=== PATIENT | female | born 1990 | race Caucasian/White ===

== ENCOUNTER 2024-06-28 17:30 | Inpatient (IN) | payer OTHER, SELFPAY ==
[2024-06-28] VITALS (8 sets, daily range): BP systolic 97–121; BP diastolic 59–92; BMI 20.4
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
--- NOTE | 2024-06-28 14:55 | EDRN ---
1 cup of OJ administered at this time for BS ashleyucheck 54.
[2024-06-28] MEDS: KEPPRA 1000 MG IV (15:02)
[2024-06-28] MEDS: NSS 1000 IV (15:02)
[2024-06-28 15:22] LABS: % Basophils 0.6 % (0-2); % Eosinophils 0.6 % (0-6); % Immature Granulocytes 0.5 % (0-0.5); % Lymphocytes 12.5 % (20.5-51.1); % Monocytes 3.1 % (1.7-9.3); % Neutrophils 82.7 % (42.2-75.2); Absolute Lymphocytes 0.8 10^3/uL (1.2-3.4); Absolute Monocytes 0.2 10^3/uL (0.1-0.6); Absolute Neutrophils 5.4 10^3/uL (1.4-6.5); Hemoglobin 9.5 g/dL (12.0-16.0); Mean Corp Hgb Conc. 35.2 g/dL (33.0-37.0); Mean Corpuscular Hgb 36.8 pg (27.0-31.0); Mean Corpuscular Volume 104.7 fL (81.0-99.0); Nucleated Red Blood Cells % 0 %; Red Blood Cell Count 2.58 10^6/uL (4.20-5.40); Red Cell Dist. Width 13.8 % (11.5-14.5); White Blood Cell Count 6.5 10^3/uL (4.8-10.8)
[2024-06-28 15:22] LABS: Glucose - Point of Care 76 mg/dl (70-99)
[2024-06-28 15:30] LABS: INR 1.88; PT 21.8 Sec (11.4-14.6)
[2024-06-28 15:31] LABS: APTT 44.5 Sec (23.4-35.0)
[2024-06-28 15:53] LABS: ALT (SGPT) 30 U/L (0-35); AST (SGOT) 89 U/L (14-36); Albumin 2.5 g/dl (3.5-5.0); Alcohol 146 mg/dl; Alkaline Phosphatase 64 U/L (38-126); Blood Urea Nitrogen 9 mg/dl (7-17); Calcium 5.1 mg/dl (8.4-10.2); Carbon Dioxide 16 mmol/L (22-30); Chloride 122 mmol/L (98-107); Creatine Phosphokinase 59 U/L (30-135); Estimated Creatinine Clearance 98 ml/min; Glucose 42 mg/dl (70-99); Magnesium 1.1 mg/dl (1.6-2.3); Potassium 2.3 mmol/L (3.5-5.1); Sodium 146 mmol/L (135-145); Total Bilirubin 0.9 mg/dl (0.2-1.3); Total Protein 4.8 g/dl (6.3-8.2); eGFR > 60.00
[2024-06-28 15:56] LABS: Mean Platelet Volume 8.8 fL (7.4-10.4); Platelet Count 80 10^3/uL (130-400)
[2024-06-28] MEDS: DEXTROSE 50% SYRINGE 25 GRAMS IV (16:06)
[2024-06-28] MEDS: KCL 40 MEQ PO (16:07)
[2024-06-28] MEDS: MAGNESIUM SULFATE 50 IV ×2 (16:07→20:15)
[2024-06-28] MEDS: KCL 270 MEQ IV (16:45)
[2024-06-28 16:47] LABS: Glucose - Point of Care 204 mg/dl (70-99)
--- NOTE | 2024-06-28 17:00 | HPS.HSE ---
Family Physician
-
Family Physician: INTER[facility]IEWE UNKNOWN - PT NOT
Chief Complaint
-
Seizure
History of Present Illness
Patient is a 34 y/o female past medical history of hypothyroidism, GERD/gastritis, and questionable seizure disorder who presents following a seizure. Patient reports she was very tired today and not feeling like herself. She got up to use the
bathroom, but instead walked into her daughter's room where she had an apparent seizure. Family described her as having rigid upper and lower extremities, and was unresponsive for a long period of time. EMS was called who noted patient to be
post-ictal. Patient reports a prior seizure when she was about 16 years old and still in high school, and a second seizure about 15 years ago (several years after the of her oldest child). Patient denies taking any seizure medications in the
past. She admits to daily alcohol consumption of 3 shots of vodka with soda nightly with last drink about 10PM yesterday. She denies prior episodes of alcohol withdrawal.
Medical History
Past Medical History
Past Medical History: Reports Other
Additional Past Medical History:
Hypothyroidism
GERD / Gastritis
?? Seizure Disorder
Alcohol Use Disorder
Past Surgical History: Reports Other
Additional Past Surgical History:
Thyroid Ablation
Endoscopy
Social History
Tobacco: Vaping
Alcohol: Daily (3 shots of vodka nightly)
Drug: None
Family History
Family History: Not pertinent
Allergies / Home Medications
Allergies reflects when Allergies were last updated in [facility].
Home Medications with original date entered in [facility]
Allergy/Medication List:
Allergies
Allergy/AdvReac Type Severity Reaction Status Date / Time
cefaclor [From Ceclor] Allergy Unknown Verified 06/28/24 14:23
ketamine Allergy Unknown Verified 06/28/24 14:23
Penicillins Allergy Unknown Verified 06/28/24 14:23
sulfamethoxazole Allergy Unknown Verified 06/28/24 14:23
[From Bactrim]
trimethoprim [From Bactrim] Allergy Unknown Verified 06/28/24 14:23
Home Medications
calcium carbonate (Tums Extra Strength Smoothies) 300 mg PO DAILYPRN PRN upset stomach 06/28/24
ibuprofen 200 mg tablet 600 mg PO Q6HPRN PRN mild pain 06/28/24
levothyroxine 75 mcg tablet 75 mcg PO DAILY 06/28/24
pantoprazole 40 mg tablet,delayed release 40 mg PO BID 06/28/24
sucralfate 1 gram tablet 1 g PO ACHS 06/28/24
Review of Systems
-
History Source: Patient
A 12 point ROS was completed and negative except as noted: Yes
Constitutional: Denies Fever or Chills
Respiratory: Denies Cough or Trouble Breathing
Cardiac: Reports Palpitations (Frequent); Denies Chest Pain
Abdomen/GI: Denies Abdominal Pain, Nausea, Vomiting, Diarrhea or Constipated
Physical Exam
Vital Signs
Vital Signs
Temp Pulse Resp BP Pulse Ox
98.2 F 101 20 113/92 100
06/28/24 14:23 06/28/24 14:23 06/28/24 14:23 06/28/24 14:23 06/28/24 14:23
Physical Exam
General: Well Developed, Well Nourished and No Apparent Distress
HEENT: NormoCephalic, Anicteric, Moist mucous membranes and Atraumatic
Respiratory: Clear and Non Labored Respirations; No Wheezes, Rales or Rhonchi
Cardiac: S1/S2 and Regular Rhythm; No Murmur
GI: Soft, Non Tender, Non Distended and Normal Bowel Sounds
Rectal: Deferred by Provider
Musculoskeletal: No Clubbing, No Cyanosis and No Edema
Skin: Warm and Dry; No Rash
Neuro: Awake, Alert, Oriented and Nonfocal/grossly intact
Psych: Calm
Laboratory Results
-
06/28/24 15:08
Laboratory Results
PT 21.8 Sec (11.4-14.6) H 06/28/24 15:08
INR 1.88 06/28/24 15:08
APTT 44.5 Sec (23.4-35.0) H 06/28/24 15:08
Total Bilirubin 0.9 mg/dl (0.2-1.3) 06/28/24 15:08
AST 89 U/L (14-36) H 06/28/24 15:08
ALT 30 U/L (0-35) 06/28/24 15:08
Alkaline Phosphatase 64 U/L (38-126) 06/28/24 15:08
Data Reviewed
-
CT Scan: Report Reviewed by me
Lab Data: Labs Reviewed by me
Impression/Plan
-
Seizure, possibly alcohol withdrawal vs untreated seizure disorder
-Consult Neurology
-Continue Keppra
-Continue seizure precautions
Severe Electrolyte Abnormalities (Hypokalemia, Hypomagnesemia, Hypocalcemia), secondary to Alcohol Use and exacerbated by Protonix / Carafate
-Replace potassium, magnesium and calcium
-PTH is pending
-Check labs later this evening and in AM
Hypoglycemia secondary to seizure
-Glucose level improved following OJ and Dextrose given in ED
Hypothyroidism
-TSH 81.70
-Suspect malabsorption of levothyroxine in setting of Carafate
-Continue levothyroxine
-Recommend repeat testing as outpatient in 4-6 weeks
Macrocytic Anemia and Thrombocytopenia, likely related to Alcohol
-Check vitamin b12 and folic acid level
-Monitor counts
GERD / Gastritis
-Stop Carafate
-Continue Protonix - May need to consider stopping if patient develops recurrent electrolyte abnormalities
Alcohol Use Disorder
-Continue thiamine and folic acid
-Continue alcohol withdrawal protocol
DVT proph: SCDs
Code Status: Full Code
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
[2024-06-28 17:22] LABS: Calcium 7.7 mg/dl (8.4-10.2)
[2024-06-28 17:27] LABS: Folate 1.9 ng/ml (2.76-20)
[2024-06-28 17:33] LABS: Intact PTH 104.3 pg/ml (13.6-85.8)
[2024-06-28] MEDS: TYLENOL 650 MG PO (17:53)
[2024-06-28] MEDS: CALCIUM GLUCONATE 100 IV (17:53)
[2024-06-28 18:23] LABS: Amphetamines Negative (Negative); Barbiturates Negative (Negative); Benzodiazepines Negative (Negative); Buprenorphine Negative (Negative); Cocaine Negative (Negative); Marijuana Negative (Negative); Methadone Negative (Negative); Methamphetamines Negative (Negative); Opiates Negative (Negative); Phencyclidine Negative (Negative); Tricyclic Antidepressants Negative (Negative)
[2024-06-28 19:17] LABS: Free T4 0.19 ng/dl (0.78-2.19)
--- NOTE | 2024-06-28 19:30 | PTCARENOTE ---
Patient recieved from ED via stretcher, AAOx3. IV's flushed and patent. Patient aaox3, able to make needs known.
[2024-06-28] MEDS: THIAMINE INJECTION 200 MG IV (19:49)
[2024-06-28] MEDS: KEPPRA 500 MG PO (19:49)
[2024-06-28] MEDS: PROTONIX 40 MG PO (19:49)
[2024-06-28] MEDS: ULTRAM 25 MG PO ×2 (20:38→23:26)
[2024-06-28] MEDS: NSS with KCL 40 MEQ 1000 IV (20:58)
[2024-06-28] MEDS: ZOFRAN 4 MG IV (22:01)
--- NOTE | 2024-06-28 23:46 | W.PN.UPDATE ---
Update Note
Progress Note Update
~ 20:00 Pt c/o 9 out of 10 abdominal pain, Tylenol not helping. Ordered Ultram 25 mg PO x 1.
~ Repeat labs ordered for 2100, IV supplements still infusing, labs done after IV finished infusing.
~23:00 Pt c/o abdominal pain, per pt Ultram helped for a short while. Ordered additional Ultram 25 mg PO x 1. If continued pain will order stronger medication.
23:30 K+ resulted at 6.3, redraw done to confirm results. New draw 6.0. Stopped IV fluids w/K+, changed to�NSS. Redraw at 4 am�
23:45 Pt c/o palpitations, EKG showed NSR with prolonged Qtc @ 472, HR 82. QTc prolonging medications put on hold.�
Blood glucose level taken, result 65. Pt w/ nausea, unable to tolerate PO intake. Ordered Dextrose 50%, 12.5 grams. Repeat 15 min�glucose 145.�
Ordered Ativan 0.5 mg IV x 1 to help w/palpitations and anxiety.
~ 5 am AM labs: K+ 5.3, glucose 107, Calcium 8.4, Magnesium 2.3.
[2024-06-28 23:54] LABS: Glucose - Point of Care 65 mg/dl (70-99)
[2024-06-29 00:04] LABS: Blood Urea Nitrogen 9 mg/dl (7-17); Carbon Dioxide 20 mmol/L (22-30); Chloride 109 mmol/L (98-107); Estimated Creatinine Clearance 84 ml/min; Glucose 69 mg/dl (70-99); Magnesium 2.9 mg/dl (1.6-2.3); Sodium 139 mmol/L (135-145); eGFR > 60.00
[2024-06-29] MEDS: DEXTROSE 50% SYRINGE 12.5 GRAMS IV (00:23)
[2024-06-29] MEDS: NSS (PRESERVATIVE FREE) 0.25 ML IV (00:23)
[2024-06-29] MEDS: ATIVAN 0.5 MG IV (00:24)
[2024-06-29] MEDS: NSS 1000 IV ×3 (00:35→19:37)
[2024-06-29 00:54] LABS: Lipase 483 U/L (23-300)
[2024-06-29 00:56] LABS: Glucose - Point of Care 146 mg/dl (70-99)
[2024-06-29 03:20] VITALS: BP 120/89
[2024-06-29 03:22] LABS: Glucose - Point of Care 78 mg/dl (70-99)
[2024-06-29 04:45] LABS: Hematocrit 29.7 % (37.0-47.0); Hemoglobin 10.2 g/dL (12.0-16.0); Mean Corp Hgb Conc. 34.3 g/dL (33.0-37.0); Mean Corpuscular Volume 104.9 fL (81.0-99.0); Mean Platelet Volume 8.6 fL (7.4-10.4); Platelet Count 90 10^3/uL (130-400); Red Blood Cell Count 2.83 10^6/uL (4.20-5.40); Red Cell Dist. Width 13.6 % (11.5-14.5); White Blood Cell Count 6.9 10^3/uL (4.8-10.8)
[2024-06-29 04:50] LABS: INR 1.18; PT 15.3 Sec (11.4-14.6)
[2024-06-29 05:06] LABS: ALT (SGPT) 43 U/L (0-35); AST (SGOT) 144 U/L (14-36); Albumin 4.1 g/dl (3.5-5.0); Alkaline Phosphatase 88 U/L (38-126); Blood Urea Nitrogen 8 mg/dl (7-17); Calcium 8.4 mg/dl (8.4-10.2); Carbon Dioxide 23 mmol/L (22-30); Chloride 109 mmol/L (98-107); Estimated Creatinine Clearance 84 ml/min; GGTP 433 U/L (12-43); Glucose 107 mg/dl (70-99); Magnesium 2.3 mg/dl (1.6-2.3); Phosphorus 2.1 mg/dl (2.5-4.5); Potassium 5.3 mmol/L (3.5-5.1); Sodium 137 mmol/L (135-145); eGFR > 60.00
[2024-06-29] MEDS: ATIVAN 1 MG PO ×2 (05:06→14:22)
[2024-06-29] MEDS: SYNTHROID 75 MCG PO (05:06)
[2024-06-29 06:53] VITALS: BP 117/84
--- NOTE | 2024-06-29 07:11 | CON.NEURO ---
Consultation
Order
Date of Consultation: 06/29/24
Requesting Provider: Barbara Lema PA-C
Reason for Consult: Seizure
Neurology Consultation Note.
HPI: This is a 34-year-old woman who presented to [facility] on June 28, 2024 with generalized weakness. Ms. Paulino endorses no acute complaints. According to EMR the patient had a witnessed spell by her family at home described
her having rigid upper and lower extremities with associated unresponsive for unspecified timeframe.
Ms. Paulino reports history of two previous seizures - one in high school and another in the age of 16. The first seizure occurred while in school reportedly resulting in monitoring at [facility] and subsequent transfer to a
hospital. The patient does not recall if these seizures were classified as epileptic or nonepileptic but states she was never prescribed antiepileptic in the past.
The patient denies any recent changes in medications prior to admission.
Ms. Paulino reportedly had an accidental head trauma with resultant right cheek ecchymosis several days prior to admission.
ER VS: 113/92, 104, afebrile.
EKG: NSR, QTc Int : 472 ms
PDMP: No recently prescribed medications
Labs: Glucose�42, sodium�146, potassium�2.3, CO2�16, magnesium�1.1, total bilirubin�2.0, GGT T�433, hemoglobin�9.5, platelets�80, urine tox�negative, TSH�81.7, free T4�0.90
EtOH level�146 mg/dl.
CT head wo contrast�no evidence of acute infarct.
Brain MRI without nereida�minimal hyperintensity within the periventricular and deep subcortical white matter.
Routine EEG-normal.
PMH: Hypothyroidism, GERD, opioid/EtOH use disorder, hepatic steatosis
PSH: Endoscopy
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
FH: Mother and maternal uncle�seizures
All: Bactrim, penicillins, creatinine, cefaclor
ROS: Constitutional: Negative. Negative for chills, fever and unexpected weight change.
HENT: Negative for ear pain, hearing loss, tinnitus and trouble swallowing.
Eyes: Negative. Negative for photophobia, pain and visual disturbance.
Respiratory: Negative for cough, choking and shortness of breath.
Cardiovascular: Negative for chest pain, palpitations and leg swelling.
Gastrointestinal: Negative for abdominal pain and vomiting.
Endocrine: Negative. Negative for cold intolerance.
Genitourinary: Negative for dysuria, flank pain and urgency.
Musculoskeletal: Negative for back pain, gait problem, neck pain and neck stiffness.
Skin: Positive for right cheek ecchymosis
Allergic/Immunologic: Negative. Negative for immunocompromised state.
Neurological: Negative for dizziness, tremors, seizures, speech difficulty, numbness and headaches.
Psychiatric/Behavioral: Negative for behavioral problems, confusion and hallucinations.
General: Well developed. In no acute distress.
Cardio: Regular rate and rhythm without murmur. Extremities are without cyanosis or edema.
Neuro:
Mental Status: Alert, oriented to person, place, month, year, president. Date was incorrect impaired attention and preserved comprehension. Follows complex requests. Nonfluent.
Cranial Nerves: Pupils are equally round and reactive to light. EOMs full. Visual culp full to confrontation. No ptosis. No nystagmus. V1-V3 intact to light touch and pinprick bilaterally, symmetric. Face symmetric. Normal hearing AU. The
palate elevated well. SCMs and traps 5/5. Tongue midline. No dysarthria.
Motor: Normal bulk and tone. No pronator or arm drift. Strength 5/5 throughout. No clonus.
Reflexes: Negative clonus at the ankles
Sensory: Normal position at the toes
Coordination: No dysmetria or tremor.
Gait: deferred
Skin�large right cheek ecchymosis.
Assessment and Plan:
I. Symptomatic seizure (from hypoglycemia, hypomagnesemia)
II. Anemia/thrombocytopenia
III. Opioid/ETOH use disorder
- Continue telemetry monitoring
- CIWA protocol
- Continue IV thiamine
- Please check CK
- Continue Keppra 500 mg twice daily for now given recent head trauma
- No driving for 6 months
- Addiction psychiatry evaluation
- Outpatient neurology follow-up
- Please recall neurology services any questions or concerns.
I personally reviewed all radiology and labs along with past medical records pertinent to current medical problems. Total time spent in patient care is 60 minutes.
Thank you for allowing us to participate in the care of this patient. We will continue to follow. Please do not hesitate to contact us with any questions or concerns.
Subjective/Objective
Subjective Data
Date of Service: June 29, 2024
Objective Data
Vital Signs
Temp Pulse Resp BP Pulse Ox
37.0 C 91 18 117/84 99
06/29/24 06:53 06/29/24 06:53 06/29/24 06:53 06/29/24 06:53 06/29/24 06:53
Lab Results
06/29/24 04:16
06/29/24 04:16
PT 15.3 Sec (11.4-14.6) H 06/29/24 04:16
INR 1.18 06/29/24 04:16
APTT 44.5 Sec (23.4-35.0) H 06/28/24 15:08
Sodium 137 mmol/L (135-145) 06/29/24 04:16
Potassium 5.3 mmol/L (3.5-5.1) H 06/29/24 04:16
BUN 8 mg/dl (7-17) 06/29/24 04:16
Glucose 107 mg/dl (70-99) H 06/29/24 04:16
Calcium 8.4 mg/dl (8.4-10.2) 06/29/24 04:16
Phosphorus 2.1 mg/dl (2.5-4.5) L 06/29/24 04:16
Ur Buprenorphine Negative (Negative) 06/28/24 17:55
Patient Allergies
cefaclor [From Ceclor] Allergy (Verified 06/28/24 14:23)
Unknown
ketamine Allergy (Verified 06/28/24 14:23)
Unknown
Penicillins Allergy (Verified 06/28/24 14:23)
Unknown
sulfamethoxazole [From Bactrim] Allergy (Verified 06/28/24 14:23)
Unknown
trimethoprim [From Bactrim] Allergy (Verified 06/28/24 14:23)
Unknown
Medications
-
Active Medications
Generic Name Dose Route Start Last Admin
Trade Name Freq PRN Reason Stop Dose Admin
Acetaminophen 650 mg 06/28/24 17:45 06/28/24 17:53
Acetaminophen 325 Mg Tablet PO 07/26/24 17:44 650 mg
Q4HPRN PRN Administration
mild pain/ fever>100.5F
Dextrose 12.5 grams 06/29/24 00:02 06/29/24 00:23
Dextrose 50% (0.5 Grams/Ml) 50 Ml Syringe IV 07/27/24 00:01 12.5 grams
[id number] PRN Administration
hypoglycemia
Protocol
Folic Acid 1 mg 06/29/24 08:00
Folic Acid 1 Mg Tablet PO 07/27/24 07:59
DAILY MARK
Folic Acid 1 mg/ Sodium 50.2 mls @ 200.8 mls/hr 06/28/24 19:18
Chloride IV 07/26/24 19:17
DAILYPRN PRN
if NPO
Sodium Chloride 1,000 mls @ 100 mls/hr 06/29/24 00:30 06/29/24 00:35
Nss IV 1,000 mls
.Q10H MARK Administration
Levetiracetam 500 mg 06/28/24 20:00 06/28/24 19:49
Levetiracetam 500 Mg Regular Release Tablet PO 07/26/24 19:59 500 mg
BID MARK Administration
Levothyroxine Sodium 75 mcg 06/29/24 06:00 06/29/24 05:06
Levothyroxine 75 Mcg Tablet PO 07/27/24 05:59 75 mcg
DAILY@0600 MARK Administration
Lorazepam 1 mg 06/28/24 19:18 06/29/24 05:06
Lorazepam 1 Mg Tablet PO 07/26/24 19:17 1 mg
Q2HPRN PRN Administration
MSAS 5-7
Lorazepam 1 mg 06/28/24 19:18
Lorazepam 2 Mg/Ml Vial IV 07/26/24 19:17
Q1HPRN PRN
MSAS 8-11
Lorazepam 2 mg 06/28/24 19:18
Lorazepam 2 Mg/Ml Vial IV 07/26/24 19:17
Q1HPRN PRN
MSAS > 11
Ondansetron HCl 4 mg 06/28/24 19:18 06/28/24 22:01
Ondansetron 4 Mg/2 Ml Vial IV 07/26/24 19:17 4 mg
Q6HPRN PRN Administration
NAUSEA/VOMITING
Pantoprazole Sodium 40 mg 06/28/24 20:00 06/28/24 19:49
Pantoprazole 40 Mg Delayed Release Tablet PO 07/26/24 19:59 40 mg
BID MARK Administration
Sodium Chloride 0 ml 06/28/24 19:18
Sodium Chloride 0.9% (Preservative Free) 10 Ml Vial IV 07/26/24 19:17
PRN PRN
To dilute IV Ativan
Protocol
Sodium Chloride 0 flush 06/29/24 01:00
Sodium Chloride 0.9% (Flush) Syringe IV 07/27/24 00:59
PER PROTOCOL MARK
Thiamine HCl 200 mg 06/28/24 20:00 06/28/24 19:49
Thiamine (100 Mg/Ml) 2 Ml Vial IV 07/01/24 08:01 200 mg
Q12 MARK Administration
Thiamine HCl 100 mg 07/01/24 20:00
Thiamine 100 Mg Tablet PO 07/29/24 19:59
BID MARK
Home Medications
�Medication �Instructions �Recorded
calcium carbonate (Tums Extra 300 mg PO DAILYPRN PRN upset 06/28/24
Strength Smoothies) stomach
ibuprofen 200 mg tablet 600 mg PO Q6HPRN PRN mild pain 06/28/24
levothyroxine 75 mcg tablet 75 mcg PO DAILY Thyroid 06/28/24
pantoprazole 40 mg tablet,delayed 40 mg PO BID GERD 06/28/24
release
sucralfate 1 gram tablet 1 g PO ACHS Gastrointestinal Agent 06/28/24
Vital Signs and Labs
-
Vital Signs and Labs:
Vital Signs
Temp Pulse Resp BP Pulse Ox
37.0 C 91 18 117/84 99
06/29/24 06:53 06/29/24 06:53 06/29/24 06:53 06/29/24 06:53 06/29/24 06:53
Lab Results
06/29/24 04:16
06/29/24 04:16
PT 15.3 Sec (11.4-14.6) H 06/29/24 04:16
INR 1.18 06/29/24 04:16
APTT 44.5 Sec (23.4-35.0) H 06/28/24 15:08
Sodium 137 mmol/L (135-145) 06/29/24 04:16
Potassium 5.3 mmol/L (3.5-5.1) H 06/29/24 04:16
BUN 8 mg/dl (7-17) 06/29/24 04:16
Glucose 107 mg/dl (70-99) H 06/29/24 04:16
Calcium 8.4 mg/dl (8.4-10.2) 06/29/24 04:16
Phosphorus 2.1 mg/dl (2.5-4.5) L 06/29/24 04:16
Ur Buprenorphine Negative (Negative) 06/28/24 17:55
Medications
-
Medications:
Generic Name Dose Route Start Last Admin
Trade Name Freq PRN Reason Stop Dose Admin
Acetaminophen 650 mg 06/28/24 17:45 06/28/24 17:53
Acetaminophen 325 Mg Tablet PO 07/26/24 17:44 650 mg
Q4HPRN PRN Administration
mild pain/ fever>100.5F
Dextrose 12.5 grams 06/29/24 00:02 06/29/24 00:23
Dextrose 50% (0.5 Grams/Ml) 50 Ml Syringe IV 07/27/24 00:01 12.5 grams
[id number] PRN Administration
hypoglycemia
Protocol
Folic Acid 1 mg 06/29/24 08:00 06/29/24 07:48
Folic Acid 1 Mg Tablet PO 07/27/24 07:59 1 mg
DAILY MARK Administration
Folic Acid 1 mg/ Sodium 50.2 mls @ 200.8 mls/hr 06/28/24 19:18
Chloride IV 07/26/24 19:17
DAILYPRN PRN
if NPO
Sodium Chloride 1,000 mls @ 100 mls/hr 06/29/24 00:30 06/29/24 00:35
Nss IV 1,000 mls
.Q10H MARK Administration
Levetiracetam 500 mg 06/28/24 20:00 06/29/24 07:48
Levetiracetam 500 Mg Regular Release Tablet PO 07/26/24 19:59 500 mg
BID MARK Administration
Levothyroxine Sodium 75 mcg 06/29/24 06:00 06/29/24 05:06
Levothyroxine 75 Mcg Tablet PO 07/27/24 05:59 75 mcg
DAILY@0600 MARK Administration
Lorazepam 1 mg 06/28/24 19:18 06/29/24 05:06
Lorazepam 1 Mg Tablet PO 07/26/24 19:17 1 mg
Q2HPRN PRN Administration
MSAS 5-7
Lorazepam 1 mg 06/28/24 19:18
Lorazepam 2 Mg/Ml Vial IV 07/26/24 19:17
Q1HPRN PRN
MSAS 8-11
Lorazepam 2 mg 06/28/24 19:18
Lorazepam 2 Mg/Ml Vial IV 07/26/24 19:17
Q1HPRN PRN
MSAS > 11
Ondansetron HCl 4 mg 06/28/24 19:18 06/28/24 22:01
Ondansetron 4 Mg/2 Ml Vial IV 07/26/24 19:17 4 mg
Q6HPRN PRN Administration
NAUSEA/VOMITING
Pantoprazole Sodium 40 mg 06/28/24 20:00 06/29/24 07:49
Pantoprazole 40 Mg Delayed Release Tablet PO 07/26/24 19:59 40 mg
BID MARK Administration
Sodium Chloride 0 ml 06/28/24 19:18
Sodium Chloride 0.9% (Preservative Free) 10 Ml Vial IV 07/26/24 19:17
PRN PRN
To dilute IV Ativan
Protocol
Sodium Chloride 0 flush 06/29/24 01:00
Sodium Chloride 0.9% (Flush) Syringe IV 07/27/24 00:59
PER PROTOCOL MARK
Thiamine HCl 200 mg 06/28/24 20:00 06/29/24 07:49
Thiamine (100 Mg/Ml) 2 Ml Vial IV 07/01/24 08:01 200 mg
Q12 MARK Administration
Thiamine HCl 100 mg 07/01/24 20:00
Thiamine 100 Mg Tablet PO 07/29/24 19:59
BID MARK
Home Medications
-
Home Medications
calcium carbonate (Tums Extra Strength Smoothies) 300 mg PO DAILYPRN PRN upset stomach 06/28/24
ibuprofen 200 mg tablet 600 mg PO Q6HPRN PRN mild pain 06/28/24
levothyroxine 75 mcg tablet 75 mcg PO DAILY Thyroid 06/28/24
pantoprazole 40 mg tablet,delayed release 40 mg PO BID GERD 06/28/24
sucralfate 1 gram tablet 1 g PO ACHS Gastrointestinal Agent 06/28/24
[2024-06-29] MEDS: KEPPRA 500 MG PO ×2 (07:48→19:36)
[2024-06-29] MEDS: FOLVITE 1 MG PO (07:48)
[2024-06-29] MEDS: THIAMINE INJECTION 200 MG IV ×2 (07:49→19:36)
[2024-06-29] MEDS: PROTONIX 40 MG PO ×2 (07:49→19:36)
[2024-06-29 09:46] LABS: Total CK 93 U/L (30-135)
[2024-06-29 10:11] LABS: CKMB 0.9 ng/ml (0.0-3.4)
[2024-06-29 11:00] VITALS: BP 108/76
[2024-06-29] MEDS: SODIUM PHOSPHATE 255 MEQ IV (11:12)
[2024-06-29] MEDS: TYLENOL 650 MG PO (11:17)
--- NOTE | 2024-06-29 12:10 | EEGC.RPT ---
Continuous EEG Report
Recording
Start Date of Data Reviewed: 06/29/24
End Date of Data Reviewed: 06/29/24
Done with Video Recording: Yes
Electrocardiogram: Unremarkable
Report
TECHNICAL REMARKS: This is a technically satisfactory eighteen channel record employing 21 disc electrodes applied according to a measured international 10-20 electrode placement system. There were no significant technical difficulties. The study
was done on a [employer] System.
CLINICAL HISTORY: This is a 34-year-old woman with seizure. This study was requested to look for epileptiform abnormalities.
MEDICATION: Keppra, lorazepam
STUDY DURATION: 27 min, 51 secs
REPORT: At the onset of the EEG, the patient is awake. The background activity consists of 10-11Hz, persistent, posteriorly dominant, moderate amplitude, symmetric and rhythmic activity that is reactive to eye-opening. Anteriorly, it consists of a
mixture of low voltage indeterminate activity and 20-25 Hz, persistent, low amplitude, symmetric and rhythmic activity. Stepwise intermittent photic stimulation (1-31 Hz) and hyperventilation did not induce any abnormalities. Drowsiness is
characterized by low amplitude mixed frequency activity, decreased eye blinking, and muscle artifact. N2 sleep was reached. Excessive beta activity was present.
IMPRESSION: This is a normal awake and asleep EEG. There is no evidence of focal slowing or epileptiform activity. A normal EEG does not rule out epilepsy. If the clinical picture warrants, a sleep-deprived awake and sleep record may be helpful.
--- NOTE | 2024-06-29 13:21 | W.PN.HOSP.TC ---
Today's Communication/Plan
-
Monitor vital signs see plan
Continue with fluids
Replete electrolytes aggressively
Trial of Tigan
Assessment / Plan
Assessment / Plan
General: Well Developed, Well Nourished and No Apparent Distress
HEENT: NormoCephalic, Anicteric, Moist mucous membranes and Atraumatic
Respiratory: Clear and Non Labored Respirations; No Wheezes, Rales or Rhonchi
Cardiac: S1/S2 and Regular Rhythm; No Murmur
GI: Soft, Non Tender, Non Distended and Normal Bowel Sounds
Musculoskeletal: Edema
Neuro: Awake, Alert, Oriented and Nonfocal/grossly intact
Psych: Calm
Seizure, possibly alcohol withdrawal vs untreated seizure disorder
Neurology consulted
Continue Keppra
MRI brain
-Continue Keppra
-Continue seizure precautions; reports remote history of seizure
Severe Electrolyte Abnormalities (Hypokalemia, Hypomagnesemia, Hypocalcemia), secondary to Alcohol Use and exacerbated by Protonix / Carafate
-Replace potassium, magnesium and calcium
Elevated PTH, patient to follow-up with PCP outpatient
Elevated LFTs
Check ultrasound
Monitor
Now hyperkalemia
Monitor
Low folic acid
Replete
Thrombocytopenia likely secondary to alcohol
Monitor
Hypoglycemia secondary to seizure
-Glucose level improved following OJ and Dextrose given in ED
Hypothyroidism
-TSH 81.70
-Suspect malabsorption of levothyroxine in setting of Carafate
-Continue levothyroxine
-Recommend repeat testing as outpatient in 4-6 weeks
Macrocytic Anemia and Thrombocytopenia, likely related to Alcohol
-Check vitamin b12 and folic acid level
-Monitor counts
GERD / Gastritis
-Stop Carafate
-Continue Protonix - May need to consider stopping if patient develops recurrent electrolyte abnormalities
CT done without oral contrast, early acute appendicitis cannot be entirely excluded., patient denies any right lower quadrant pain. Currently without any leukocytosis, fever. Will continue to monitor and if pain does not improve or get worse then
will get surgery evaluation.
Alcohol Use Disorder
-Continue thiamine and folic acid
-Continue alcohol withdrawal protocol
DVT proph: SCDs
Code Status: Full Code
I spent a total of 53 minutes with the patient or on the floor. More than 50% of this time involved counseling and coordination of care.
Anticipated Discharge: > 48 hours
Subjective/Interval History
-
Date of Service: June 29, 2024
Has nausea
Objective Data
-
Labs:
Laboratory Results
06/29/24
04:16
WBC 6.9
Hgb 10.2 L
Hct 29.7 L
Plt Count 90 L
PT 15.3 H
INR 1.18
Sodium 137
Potassium 5.3 H
Chloride 109 H
Carbon Dioxide 23
BUN 8
Creatinine 0.7
Glucose 107 H
Calcium 8.4
Total Bilirubin 2.0 H D
AST 144 H
ALT 43 H
Alkaline Phosphatase 88
Vital Signs:
Vital Signs
Temp Pulse Resp BP Pulse Ox
98.4 F 62 18 108/76 100
06/29/24 11:00 06/29/24 11:00 06/29/24 11:00 06/29/24 11:00 06/29/24 11:00
I&O
06/28/24 06/29/24 06/30/24
06:59 06:59 06:59
Intake Total 1200 / 1200
Balance 1200 / 1200
[2024-06-29] MEDS: TIGAN 200 MG IM (14:15)
[2024-06-29 15:09] LABS: Iron 145 ug/dl (37-170)
[2024-06-29 15:16] LABS: Percent Saturation 66 % (20-50); Total Iron Binding Capacity 217 ug/dl (265-497)
[2024-06-29 16:15] LABS: Folate 2.8 ng/ml (2.76-20); Vitamin B12 665 pg/ml (239-931)
[2024-06-29 23:33] VITALS: BP 110/78
[2024-06-30] MEDS: NSS 1000 IV ×2 (04:52→15:57)
[2024-06-30] MEDS: SYNTHROID 75 MCG PO (05:03)
[2024-06-30 07:06] VITALS: BP 106/78
[2024-06-30] MEDS: PROTONIX 40 MG PO ×2 (07:46→19:48)
[2024-06-30] MEDS: KEPPRA 500 MG PO ×2 (07:46→19:48)
[2024-06-30] MEDS: THIAMINE INJECTION 200 MG IV ×2 (07:47→19:48)
[2024-06-30] MEDS: FOLVITE 1 MG PO (07:47)
[2024-06-30 08:51] LABS: ALT (SGPT) 28 U/L (0-35); AST (SGOT) 77 U/L (14-36); Albumin 3.4 g/dl (3.5-5.0); Alkaline Phosphatase 74 U/L (38-126); Blood Urea Nitrogen 6 mg/dl (7-17); Calcium 8.3 mg/dl (8.4-10.2); Carbon Dioxide 25 mmol/L (22-30); Chloride 106 mmol/L (98-107); Estimated Creatinine Clearance 84 ml/min; Glucose 69 mg/dl (70-99); Magnesium 1.8 mg/dl (1.6-2.3); Phosphorus 2.4 mg/dl (2.5-4.5); Potassium 3.7 mmol/L (3.5-5.1); Sodium 136 mmol/L (135-145); Total Bilirubin 1.5 mg/dl (0.2-1.3); Total Protein 6.2 g/dl (6.3-8.2); eGFR > 60.00
--- NOTE | 2024-06-30 09:01 | CM ---
Patient off the nhr for MRI, spoke w/ sig Elbert haji. Initial assessment completed. Patient is a 34 y/o female past medical history of hypothyroidism, GERD/gastritis, and questionable seizure disorder who presents following a seizure.
Patient resides w/ sig other and their 6 kids in a [address]- 15 [address] to enter the building. Patient is independent w/ ambulating, no device required. Independent w/ ADLs. No DME.
Address, point of contact and insurance verified
PCP: Hola Freed
Pharmacy: [facility]
Plan: Home, no needs anticipated
[2024-06-30 09:09] LABS: % Eosinophils 6.6 % (0-6); % Immature Granulocytes 0.2 % (0-0.5); % Lymphocytes 28.1 % (20.5-51.1); % Monocytes 3.4 % (1.7-9.3); % Neutrophils 60.7 % (42.2-75.2); Absolute Basophils 0.1 10^3/uL (0-0.2); Absolute Eosinophils 0.3 10^3/uL (0-0.7); Absolute Lymphocytes 1.4 10^3/uL (1.2-3.4); Absolute Monocytes 0.2 10^3/uL (0.1-0.6); Hematocrit 26.9 % (37.0-47.0); Hemoglobin 9.6 g/dL (12.0-16.0); Mean Corp Hgb Conc. 35.7 g/dL (33.0-37.0); Mean Corpuscular Hgb 36.9 pg (27.0-31.0); Mean Corpuscular Volume 103.5 fL (81.0-99.0); Mean Platelet Volume 9.3 fL (7.4-10.4); Nucleated Red Blood Cells % 0 %; Platelet Count 65 10^3/uL (130-400); Red Cell Dist. Width 13.3 % (11.5-14.5)
[2024-06-30] MEDS: ATIVAN 1 MG PO (09:27)
[2024-06-30] MEDS: MAGNESIUM SULFATE 100 IV (09:28)
[2024-06-30] MEDS: POTASSIUM PHOSPHATE 259.0909 MEQ IV (11:04)
--- NOTE | 2024-06-30 13:28 | W.PN.HOSP.TC ---
Today's Communication/Plan
-
Monitor vitals
See plan
Replete electrolytes
Ultrasound abdomen
Ativan as needed
Continue MSAS
IVF
Assessment / Plan
Assessment / Plan
General: Well Developed, Well Nourished and No Apparent Distress
HEENT: NormoCephalic, Anicteric, Moist mucous membranes and Atraumatic
Respiratory: Clear and Non Labored Respirations; No Wheezes, Rales or Rhonchi
Cardiac: S1/S2 and Regular Rhythm; No Murmur
GI: Soft, Non Tender, Non Distended and Normal Bowel Sounds
Musculoskeletal: Edema
Neuro: Awake, Alert, Oriented and Nonfocal/grossly intact
Psych: Calm
Seizure, possibly alcohol withdrawal vs untreated seizure disorder
Neurology following
Continue Keppra
MRI brain without acute CVA
-Continue Keppra
-Continue seizure precautions; reports remote history of seizure
Reported DMV per neurology recommendation, patient aware
Also on alcohol withdrawal, MSAS
Severe Electrolyte Abnormalities (Hypokalemia, Hypomagnesemia, Hypocalcemia), secondary to Alcohol Use and exacerbated by Protonix / Carafate
-Replace potassium, magnesium and calcium
Elevated PTH, patient to follow-up with PCP outpatient
Elevated LFTs
US wihtout acute biliary abnormality. Fatty infiltration of the liver. Nephrolithiasis. No evidence of pelvicalyceal dilation
Monitor
hyperkalemia
Resolved
Low folic acid
Replete
Thrombocytopenia likely secondary to alcohol
Monitor
Hypoglycemia secondary to seizure
-Glucose level improved following OJ and Dextrose given in ED
Hypothyroidism
-TSH 81.70
-Suspect malabsorption of levothyroxine in setting of Carafate
-Continue levothyroxine
-Recommend repeat testing as outpatient in 4-6 weeks
Macrocytic Anemia and Thrombocytopenia, likely related to Alcohol
-Monitor counts
GERD / Gastritis
-Stop Carafate
-Continue Protonix - May need to consider stopping if patient develops recurrent electrolyte abnormalities
CT done without oral contrast, early acute appendicitis cannot be entirely excluded., patient denies any right lower quadrant pain. Currently without any leukocytosis, fever. Will continue to monitor and if pain does not improve or get worse then
will get surgery evaluation.
Alcohol Use Disorder
-Continue thiamine and folic acid
-Continue alcohol withdrawal protocol
DVT proph: SCDs
Code Status: Full Code
I spent a total of 53 minutes with the patient or on the floor. More than 50% of this time involved counseling and coordination of care.
Anticipated Discharge: 24 - 48 hours
Subjective/Interval History
-
Date of Service: June 30, 2024
has some pain
Objective Data
-
Labs:
Laboratory Results
06/30/24
07:11
WBC 5.0
Hgb 9.6 L
Hct 26.9 L
Plt Count 65 L D
Sodium 136
Potassium 3.7 D
Chloride 106
Carbon Dioxide 25
BUN 6 L
Creatinine 0.7
Glucose 69 L
Calcium 8.3 L
Total Bilirubin 1.5 H
AST 77 H
ALT 28
Alkaline Phosphatase 74
Vital Signs:
Vital Signs
Temp Pulse Resp BP Pulse Ox
98.1 F 92 18 106/78 100
06/30/24 07:06 06/30/24 07:06 06/30/24 07:06 06/30/24 07:06 06/30/24 07:06
I&O
06/29/24 06/30/24 07/01/24
06:59 06:59 06:59
Intake Total 1200 / 1200 1320 / 1320
Balance 1200 / 1200 1320 / 1320
[2024-06-30] MEDS: MORPHINE SULFATE 1 MG IV ×2 (15:02→17:51)
[2024-06-30 15:26] VITALS: BP 109/79
[2024-06-30 20:09] VITALS: BP 140/74
[2024-06-30 20:20] VITALS: BP 140/78
[2024-06-30] MEDS: TORADOL 10 MG IV (21:03)
[2024-06-30 22:19] VITALS: BP 111/79
[2024-07-01] MEDS: NSS 1000 IV ×2 (01:45→13:50)
[2024-07-01 03:21] LABS: Glucose - Point of Care 89 mg/dl (70-99)
[2024-07-01] MEDS: SYNTHROID 75 MCG PO (05:12)
[2024-07-01 07:06] VITALS: BP 108/78
[2024-07-01 07:21] LABS: % Basophils 0.9 % (0-2); % Eosinophils 7.3 % (0-6); % Immature Granulocytes 0.4 % (0-0.5); % Lymphocytes 32.1 % (20.5-51.1); % Monocytes 4.2 % (1.7-9.3); % Neutrophils 55.1 % (42.2-75.2); Absolute Eosinophils 0.3 10^3/uL (0-0.7); Absolute Lymphocytes 1.5 10^3/uL (1.2-3.4); Absolute Monocytes 0.2 10^3/uL (0.1-0.6); Absolute Neutrophils 2.5 10^3/uL (1.4-6.5); Hematocrit 28.1 % (37.0-47.0); Hemoglobin 9.8 g/dL (12.0-16.0); Mean Corp Hgb Conc. 34.9 g/dL (33.0-37.0); Mean Corpuscular Hgb 36.7 pg (27.0-31.0); Mean Corpuscular Volume 105.2 fL (81.0-99.0); Mean Platelet Volume 9.7 fL (7.4-10.4); Nucleated Red Blood Cells % 0 %; Platelet Count 71 10^3/uL (130-400); Red Blood Cell Count 2.67 10^6/uL (4.20-5.40); Red Cell Dist. Width 13.7 % (11.5-14.5); White Blood Cell Count 4.6 10^3/uL (4.8-10.8)
[2024-07-01 07:38] LABS: ALT (SGPT) 27 U/L (0-35); AST (SGOT) 76 U/L (14-36); Albumin 3.9 g/dl (3.5-5.0); Alkaline Phosphatase 82 U/L (38-126); Blood Urea Nitrogen 4 mg/dl (7-17); Calcium 8.2 mg/dl (8.4-10.2); Carbon Dioxide 26 mmol/L (22-30); Chloride 106 mmol/L (98-107); Estimated Creatinine Clearance 84 ml/min; Glucose 91 mg/dl (70-99); Magnesium 1.9 mg/dl (1.6-2.3); Phosphorus 2.8 mg/dl (2.5-4.5); Potassium 3.8 mmol/L (3.5-5.1); Sodium 138 mmol/L (135-145); Total Bilirubin 0.8 mg/dl (0.2-1.3); Total Protein 6.4 g/dl (6.3-8.2); eGFR > 60.00
[2024-07-01] MEDS: THIAMINE INJECTION 200 MG IV (08:19)
[2024-07-01] MEDS: KEPPRA 500 MG PO ×2 (08:19→19:40)
[2024-07-01] MEDS: FOLVITE 1 MG PO (08:19)
[2024-07-01] MEDS: PROTONIX 40 MG PO ×2 (08:19→19:40)
[2024-07-01] MEDS: OMNIPAQUE 50 ML PO (08:20)
[2024-07-01] MEDS: TORADOL 10 MG IV (08:45)
[2024-07-01] MEDS: MORPHINE SULFATE 1 MG IV ×2 (09:47→20:59)
[2024-07-01] MEDS: MAALOX 30 ML PO (09:53)
[2024-07-01 11:05] LABS: HCG, Serum Qualitative Screen Negative
[2024-07-01] MEDS: CARAFATE 1 GRAM PO (12:21)
--- NOTE | 2024-07-01 12:45 | W.PN.HOSP.TC ---
Today's Communication/Plan
-
monitor vitals
see plan
CT abd/pelvis with PO contrast
restart carafate
PPI
MSAS
Assessment / Plan
Assessment / Plan
General: Well Developed, Well Nourished and No Apparent Distress
HEENT: NormoCephalic, Anicteric, Moist mucous membranes and Atraumatic
Respiratory: Clear and Non Labored Respirations; No Wheezes, Rales or Rhonchi
Cardiac: S1/S2 and Regular Rhythm; No Murmur
GI: Soft, Non Tender, Non Distended and Normal Bowel Sounds
Musculoskeletal: Edema
Neuro: Awake, Alert, Oriented and Nonfocal/grossly intact
Psych: Calm
Seizure, possibly alcohol withdrawal vs untreated seizure disorder
Neurology following
Continue Keppra
MRI brain without acute CVA
-Continue Keppra
-Continue seizure precautions; reports remote history of seizure
Reported DMV per neurology recommendation, patient aware
Also on alcohol withdrawal, MSAS
Severe Electrolyte Abnormalities (Hypokalemia, Hypomagnesemia, Hypocalcemia), secondary to Alcohol Use
-Replace potassium, magnesium and calcium
Elevated PTH, patient to follow-up with PCP outpatient
has severe GERD too. restarted carafate
Elevated LFTs
US without acute biliary abnormality. Fatty infiltration of the liver. Nephrolithiasis. No evidence of pelvicalyceal dilation
Monitor
GERD / Gastritis
Restarted Carafate
-Continue Protonix
CT done without oral contrast, early acute appendicitis cannot be entirely excluded., patient denies any right lower quadrant pain. Currently without any leukocytosis, fever. Will continue to monitor and if pain does not improve or get worse then
will get surgery evaluation.
Still with abdominal pain, check CT abdomen/pelvis with p.o. contrast
hyperkalemia
Resolved
Low folic acid
Replete
Thrombocytopenia likely secondary to alcohol
Monitor
Hypoglycemia secondary to seizure
-Glucose level improved following OJ and Dextrose given in ED
Hypothyroidism
-TSH 81.70
Discussed with patient again, now she is reporting that she might of missed few doses before
-Continue levothyroxine
-Recommend repeat testing as outpatient in 4-6 weeks
Macrocytic Anemia and Thrombocytopenia, likely related to Alcohol
-Monitor counts
GERD / Gastritis
-Stop Carafate
-Continue Protonix - May need to consider stopping if patient develops recurrent electrolyte abnormalities
CT done without oral contrast, early acute appendicitis cannot be entirely excluded., patient denies any right lower quadrant pain. Currently without any leukocytosis, fever. Will continue to monitor and if pain does not improve or get worse then
will get surgery evaluation.
Alcohol Use Disorder
-Continue thiamine and folic acid
-Continue alcohol withdrawal protocol
DVT proph: SCDs
Code Status: Full Code
I spent a total of 52 minutes with the patient or on the floor. More than 50% of this time involved counseling and coordination of care.
Anticipated Discharge: 24 - 48 hours
Subjective/Interval History
-
Date of Service: July 01, 2024
has pain
Objective Data
-
Labs:
Laboratory Results
07/01/24
06:32
WBC 4.6 L
Hgb 9.8 L
Hct 28.1 L
Plt Count 71 L
Sodium 138
Potassium 3.8
Chloride 106
Carbon Dioxide 26
BUN 4 L
Creatinine 0.7
Glucose 91
Calcium 8.2 L
Total Bilirubin 0.8
AST 76 H
ALT 27
Alkaline Phosphatase 82
Vital Signs:
Vital Signs
Temp Pulse Resp BP Pulse Ox
98.2 F 81 18 108/78 100
07/01/24 07:06 07/01/24 07:06 07/01/24 07:06 07/01/24 07:06 07/01/24 07:06
I&O
06/30/24 07/01/24 07/02/24
06:59 06:59 06:59
Intake Total 1320 / 1320 2160 / 2160
Balance 1320 / 1320 2160 / 2160
--- NOTE | 2024-07-01 13:16 | PN.CDI ---
CDI
- -
CDI:
Physician Documentation Request
Admit Date: 06/28/24 17:30
Dear Doctor Ad
Patient admitted after seizure. Per progress notes 'possibly alcohol withdrawal vs untreated seizure disorder ....Also on alcohol withdrawal, MSAS'
Per ED record 'Patient does endorse drinking at least 3 alcoholic beverages on most days, last drink was yesterday'
MSAS high score thus far 5 and has received 1 mg PO Ativan on 06/29 x 2 and 06/30 x 1
Alcohol level on 06/28 146
Please provide further specificity as outlined below:
1. Please specify the pattern of use, include all that apply:
- Use, with or without abuse and/or dependence
- Abuse with or without dependence
- Dependence
2. Please identify any associated manifestations
- Intoxication: with or without delirium, with or without perceptual disturbance
- With substance induced psychotic disorder: with delusions and/or hallucinations
- Withdrawal
- With substance induced sleep disorder and/or sexual dysfunction
- Other, please specify
- No manifestations
Use of terms such as suspected, likely, concern for, or probable (associated with a specific diagnosis that is being evaluated, monitored, or treated as if it exists) are acceptable and can be coded in the inpatient setting, when documented at the
time of discharge.
Thank you,
Soo Guzman RN, BSN
CDI Specialist
tiger text
Please use your independent medical judgment in providing your response.
--- NOTE | 2024-07-01 14:24 | CON.GI ---
Addendum entered and electronically signed by Milvia Portillo MD 07/01/24 16:04:
I saw and examined the patient.
The STONEMASON's note was reviewed and I agree with the note.
--Abdominal pain/constipation.
-- Alcohol/opioid abuse
-- Seizure
-- Severe hypothyroidism
-- Thrombocytopenia / pancytopenia
--Fatty liver
CT Abd/Pelvis with oral contrast 07/01/24:
Limited evaluation of the intestinal tract without intravenous contrast and without oral contrast opacification of virtually the entire large bowel. Suggestion of some thickening of the wall of the segment of the distal ileum proximal to the
terminal ileum as well as possible thickening of the wall of portions of the unopacified right colon questionably also involving the sigmoid colon. Findings at least raise concern for inflammatory process such as Inflammatory Bowel Disease or other
inflammatory/infectious process.
plan
Patient's abdominal pain can be secondary to constipation. Will give a dose of mag citrate followed by daily bowel regimen.
Repeat abdominal x-ray in a.m.
Check stool calprotectin
Would recommend outpatient colonoscopy +/- MR enterography
Advised to avoid alcohol
Optimal management of hypothyroidism as per medical team ( last TSH 81 )-hypothyroidism can be a contributory factor for severe constipation
Electrolyte correction as per medical team
Original Note:
Consultation
-
Date/Time Consultation Requested: 07/01/24 1400
Date/Time Consultation Performed: 07/01/24 1410
Requesting Provider: Dr. Duong
Performing Provider: Dr. Portillo/NICO Ernandez
Reason for Consultation: abd pain
Medical History
Chief Complaint / HPI
Chief Complaint: seizure
History of Present Illness:
34-year-old female with past medical history of hypothyroidism, seizure disorder, opioid/alcohol abuse, recent facial trauma without fracture, recent diagnosis of 'gastritis and colitis' at hospitalization at [facility] 3 weeks ago
with EGD performed by per patient, chronic constipation who presented to ER on 06/28/24 after a reported witness seizure at home. Patient had an elevated ETOH level at arrival. We are asked to evaluate for abdominal pain. The patient states
that 'I was admitted to [facility] for the same thing except I didn't have a seizure. I had a endoscopy and they want me to have a colonoscopy later' The patient states that she was admitted to [facility] with a couple week hx of dull upper abd pain. She
states this usually occurs when she gets 'constipated'. She uses Porter Milk of Magnesia every couple days to produce bowel movements. The states then she has hard pebble stools followed by watery stools. She then does not have a BM again until she
takes her next dose. She states she had EGD and was told she had 'gastritis' and was to take 'Protonix twice a day for 1 week, then once a day' and to take Carafate 4 times a day. She has been on this for 3-4 weeks. She also states that she was told
that she had 'colitis' based on testing, but did not have a colonoscopy. She was supposed to have a colonoscopy in the future. She uses Advil as needed for headaches. She also drinks '3 mixed drinks a night'. She is currently tolerating a solid
diet, but 'picking at the meals' because it don't eat much when I have not had a bowel movement' Patient states that she has not had BM since prior to admission. She does have a TSH of 81 with Free T4 of 0.19. She denies any F, C, N, V, melena,
hematochezia,dysphagia or odynophagia. She denies any weight loss. Her brother has a hx of either UC or Crohn's disease. Other than elevated ETOH level, negative tox screen. She does Vape. 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 Had severe
electrolyte abnormalities that are actively being addressed, folate deficiency, pancytopenia. CT of abd/pelvis with oral contrast shows Limited evaluation of the intestinal tract without intravenous contrast and without oral contrast opacification
of virtually the entire large bowel. Suggestion of some thickening of the wall of the segment of the distal ileum proximal to the terminal ileum as well as possible thickening of the wall of portions of the unopacified right colon questionably also
involving the sigmoid colon. Findings at least raise concern for inflammatory process such as Inflammatory Bowel Disease or other inflammatory/infectious process.
Past Medical History
Past Medical History: GERD, Hypothyroidism and Other (seizure, gastritis, opioid/ETOH abuse)
Past Surgical History: None
Social History
Tobacco: Vaping
Alcohol: Daily ('3-4 mixed drinks daily')
Drug: Narcotics
Personal: Single
Living: With Family
Employment: Not Employed
Family History
Family History: Other (No fam hx GI cancer, Brother with UC or Crohns)
Allergies / Home Medications
Allergy/AdvReac Type Severity Reaction Status Date / Time
cefaclor [From Ceclor] Allergy Unknown Verified 06/28/24 14:23
ketamine Allergy Unknown Verified 06/28/24 14:23
Penicillins Allergy Unknown Verified 06/28/24 14:23
sulfamethoxazole Allergy Unknown Verified 06/28/24 14:23
[From Bactrim]
trimethoprim [From Bactrim] Allergy Unknown Verified 06/28/24 14:23
�Medication �Instructions �Recorded
calcium carbonate (Tums Extra 300 mg PO DAILYPRN PRN upset 06/28/24
Strength Smoothies) stomach
ibuprofen 200 mg tablet 600 mg PO Q6HPRN PRN mild pain 06/28/24
levothyroxine 75 mcg tablet 75 mcg PO DAILY Thyroid 06/28/24
pantoprazole 40 mg tablet,delayed 40 mg PO BID GERD 06/28/24
release
sucralfate 1 gram tablet 1 g PO ACHS Gastrointestinal Agent 06/28/24
Review of Systems
-
All other systems: A 12 pt ROS was Negative except as stated above in HPI
Vital Signs
Temp Pulse Resp BP Pulse Ox
98.2 F 81 18 108/78 100
07/01/24 07:06 07/01/24 07:06 07/01/24 07:06 07/01/24 07:06 07/01/24 07:06
Physical Exam
Exam
General: No Apparent Distress
HEENT: Anicteric and Other (right side face with mild edema)
Respiratory: Clear
Cardiac: Regular Rhythm
GI: Soft, Non Tender, Non Distended and Normal Bowel Sounds
Skin: Warm and Dry
Neuro: AO x 3
Psych: Calm
Results
WBC 4.6 10^3/uL (4.8-10.8) L 07/01/24 06:32
Hgb 9.8 g/dL (12.0-16.0) L 07/01/24 06:32
Hct 28.1 % (37.0-47.0) L 07/01/24 06:32
MCV 105.2 fL (81.0-99.0) H 07/01/24 06:32
Plt Count 71 10^3/uL (130-400) L 07/01/24 06:32
Absolute Neuts (auto) 2.5 10^3/uL (1.4-6.5) 07/01/24 06:32
PT 15.3 Sec (11.4-14.6) H 06/29/24 04:16
INR 1.18 06/29/24 04:16
APTT 44.5 Sec (23.4-35.0) H 06/28/24 15:08
Sodium 138 mmol/L (135-145) 07/01/24 06:32
Potassium 3.8 mmol/L (3.5-5.1) 07/01/24 06:32
Chloride 106 mmol/L (98-107) 07/01/24 06:32
Carbon Dioxide 26 mmol/L (22-30) 07/01/24 06:32
BUN 4 mg/dl (7-17) L 07/01/24 06:32
Creatinine 0.7 mg/dL (0.6-1.0) 07/01/24 06:32
Calcium 8.2 mg/dl (8.4-10.2) L 07/01/24 06:32
Total Bilirubin 0.8 mg/dl (0.2-1.3) 07/01/24 06:32
AST 76 U/L (14-36) H 07/01/24 06:32
ALT 27 U/L (0-35) 07/01/24 06:32
Alkaline Phosphatase 82 U/L (38-126) 07/01/24 06:32
Lipase 483 U/L (23-300) H 06/28/24 23:37
Diagnostic Image Results:
CT Abd/Pelvis with oral contrast 07/01/24:
Limited evaluation of the intestinal tract without intravenous contrast and without oral contrast opacification of virtually the entire large bowel. Suggestion of some thickening of the wall of the segment of the distal ileum proximal to the
terminal ileum as well as possible thickening of the wall of portions of the unopacified right colon questionably also involving the sigmoid colon. Findings at least raisie ncern for inflammatory process such as Inflammatory Bowel Disease or other
inflammatory/infectious process.
US Abd;
Mobile sludge within the gallbladder with no shadowing gallstones. There are no sonographic findings that would be considered highly suggestive of acute cholecystitis. No evidence for biliary ductal dilation.
Fatty infiltration of the liver.
Nephrolith in the left mid kidney with no evidence for pelvicalyceal dilation.
On recent CT examination, there is a 3 mm calcification in the medial right mid kidney, which is likely a nephrolith, not visualized on the present ultrasound.
On ultrasound examination, there is a round hypoechoic lesion in the central upper to mid right kidney, suggesting a cyst although not visualized on recent CT examination.
CT Abd/Pelvis with IV contrast 06/28/24:
Diffuse fatty liver.
Somewhat prominent size gallbladder without discrete focal intrinsic abnormality. No findings to suggest biliary tract dilatation.
Limited evaluation of intestinal tract without oral contrast, without intestinal obstruction or free air. Few small right lower quadrant mesenteric lymph nodes and some mild mesenteric stranding, could represent mesenteric adenitis. Portion of
tubular structure which could represent nonenlarged appendix. Early acute appendicitis cannot be entirely excluded. If there is a high clinical suspicion for acute appendicitis, suggest short-term follow-up CT with oral contrast.
Approximate 3.1 cm simple appearing left ovarian cyst.
Brain MRI:
IMPRESSION:
No acute intracranial abnormality noted.
Prior GI Procedures:
EGD: Per patient '3-4 weeks ago [facility]'s Dr. Rdz' 'gastritis'
Colonoscopy: never
Assessment / Plan
-
34-year-old female with past medical history of hypothyroidism, seizure disorder, opioid/alcohol abuse, recent facial trauma without fracture, recent diagnosis of 'gastritis and colitis' at hospitalization at [facility] 3 weeks ago
with EGD performed by per patient, chronic constipation who presented to ER on 06/28/24 after a reported witness seizure at home. Patient had an elevated ETOH level at arrival. We are asked to evaluate for abdominal pain. Patient with similar
pain that has been ongoing for approx 2 months. Had EGD that per patient had gastritis placed on Pantoprazole and Carafate QID. Chronic ETOH use. Chronic constipation requiring milk of magnesia multiple times a week to produce BM, then having
subsequent diarrhea. Also with severe hypothyroidism with TSH of 81. CT findings of fatty liver, and few small right lower quadrant mesenteric lymph nodes and some mild mesenteric stranding, could represent mesenteric adenitis. Repeat CT with oral
contrast showed Suggestion of some thickening of the wall of the segment of the distal ileum proximal to the terminal ileum as well as possible thickening of the wall of portions of the unopacified right colon questionably also involving the sigmoid
colon. Findings at least raise concern for inflammatory process such as Inflammatory Bowel Disease or other inflammatory/infectious process. Patient has not had BM since prior to arrival. She apparently states that she had similar imaging at [facility] as she said she had 'colitis' with lack of diarrhea and colonoscopy. Patient's brother with hx of either UC or Crohns disease and she was to have eventual colonoscopy.
Impression:
Abd pain
-patient without any specific location of pain per se but complains of constipation.
-No BM since prior to arrival > 5 days
-TSH 81, as per Med team
-Stool seen in right colon on CT imaging
-Thickening of segment of distal ileum and right colon
Elevated LFTs
-Now only with AST elevation, 76
-ETOH abuse
-possible seizure
-Fatty liver
Severe electrolyte abnormalities
- Potassium, Mag and calcium -> as per IM
Macrocytic anemia with Folate deficiency
-On supplementation
Thrombocytopenia
-likely secondary to suppression from ETOH
ETOH abuse
-On withdrawal protocol
Plan:
-Start bowel regimen, one dose Mag Citrate
-Check stool calpro
-Outpatient colonoscopy/ MR enterography
-Pantoprazole 40 mg daily only
-Replacement of electrolytes as per IM
-Follow up LFTs as outpatient
-Follow up fatty liver as outpatient
-Will need complete cessation of ETOH
-Further recommendations to be forthcoming
-
-
Thank you for consultation and allowing me to participate in the patient's care. Please call the [facility] GI physician during the after hours with any questions or concerns.
[2024-07-01 15:12] VITALS: BP 117/88
[2024-07-01] MEDS: CITROMA 300 ML PO (16:02)
[2024-07-01] MEDS: VITAMIN B1 100 MG PO (19:41)
[2024-07-01 23:16] VITALS: BP 122/88
[2024-07-02] MEDS: NSS 1000 IV ×3 (00:23→21:21)
[2024-07-02] MEDS: SYNTHROID 75 MCG PO (05:53)
[2024-07-02 07:00] VITALS: BP 122/93
[2024-07-02 07:58] LABS: Transferrin 176 mg/dL (200-360)
[2024-07-02] MEDS: MORPHINE SULFATE 1 MG IV ×2 (08:42→21:19)
[2024-07-02 09:21] LABS: % Basophils 0.5 % (0-2); % Eosinophils 7.5 % (0-6); % Immature Granulocytes 0.2 % (0-0.5); % Lymphocytes 26.7 % (20.5-51.1); % Monocytes 5.3 % (1.7-9.3); % Neutrophils 59.8 % (42.2-75.2); Absolute Eosinophils 0.3 10^3/uL (0-0.7); Absolute Lymphocytes 1.1 10^3/uL (1.2-3.4); Absolute Monocytes 0.2 10^3/uL (0.1-0.6); Absolute Neutrophils 2.5 10^3/uL (1.4-6.5); Hematocrit 27.6 % (37.0-47.0); Hemoglobin 9.4 g/dL (12.0-16.0); Mean Corp Hgb Conc. 34.1 g/dL (33.0-37.0); Mean Corpuscular Hgb 36.2 pg (27.0-31.0); Mean Corpuscular Volume 106.2 fL (81.0-99.0); Mean Platelet Volume 10.1 fL (7.4-10.4); Nucleated Red Blood Cells % 0 %; Platelet Count 70 10^3/uL (130-400); White Blood Cell Count 4.2 10^3/uL (4.8-10.8)
[2024-07-02] MEDS: PROTONIX 40 MG PO ×2 (09:25→19:36)
[2024-07-02] MEDS: VITAMIN B1 100 MG PO ×2 (09:25→19:36)
[2024-07-02] MEDS: FOLVITE 1 MG PO (09:25)
[2024-07-02] MEDS: KEPPRA 500 MG PO ×2 (09:26→19:36)
[2024-07-02 10:01] LABS: ALT (SGPT) 22 U/L (0-35); AST (SGOT) 57 U/L (14-36); Albumin 3.6 g/dl (3.5-5.0); Alkaline Phosphatase 87 U/L (38-126); Blood Urea Nitrogen 4 mg/dl (7-17); Calcium 8.2 mg/dl (8.4-10.2); Carbon Dioxide 24 mmol/L (22-30); Chloride 106 mmol/L (98-107); Estimated Creatinine Clearance 98 ml/min; Glucose 80 mg/dl (70-99); Magnesium 2.4 mg/dl (1.6-2.3); Phosphorus 2.8 mg/dl (2.5-4.5); Potassium 3.5 mmol/L (3.5-5.1); Sodium 137 mmol/L (135-145); Total Bilirubin 0.6 mg/dl (0.2-1.3); Total Protein 6.1 g/dl (6.3-8.2); eGFR > 60.00
--- NOTE | 2024-07-02 11:49 | W.PN.HOSP.TC ---
Today's Communication/Plan
-
monitor vitals
see plan
monitor abdominal symptoms
limit opioids
encourage PO intake
Assessment / Plan
Assessment / Plan
General: Well Developed, Well Nourished and No Apparent Distress
HEENT: NormoCephalic, Anicteric, Moist mucous membranes and Atraumatic
Respiratory: Clear and Non Labored Respirations; No Wheezes, Rales or Rhonchi
Cardiac: S1/S2 and Regular Rhythm; No Murmur
GI: Soft, Non Tender, Non Distended and Normal Bowel Sounds
Musculoskeletal: Edema
Neuro: Awake, Alert, Oriented and Nonfocal/grossly intact
Psych: Calm
Seizure, possibly alcohol withdrawal vs untreated seizure disorder
Neurology following
Continue Keppra
MRI brain without acute CVA
-Continue Keppra
-Continue seizure precautions; reports remote history of seizure
Reported DMV per neurology recommendation, patient aware
Also on alcohol withdrawal, MSAS
Severe Electrolyte Abnormalities (Hypokalemia, Hypomagnesemia, Hypocalcemia), secondary to Alcohol Use
-Replace potassium, magnesium and calcium
Elevated PTH, patient to follow-up with PCP outpatient
has severe GERD too. restarted carafate
Elevated LFTs
US without acute biliary abnormality. Fatty infiltration of the liver. Nephrolithiasis. No evidence of pelvicalyceal dilation
Monitor
GERD / Gastritis
Restarted Carafate
-Continue Protonix
CT done without oral contrast, early acute appendicitis cannot be entirely excluded., patient denies any right lower quadrant pain. Currently without any leukocytosis, fever. Will continue to monitor and if pain does not improve or get worse then
will get surgery evaluation.
Still with abdominal pain, check CT abdomen/pelvis with p.o. contrast also not optimal study since patient could not tolerate enteric contrast. Discussed with GI. Symptoms could also be secondary to constipation. Status post mag citrate with
multiple BMs. abdomen X-ray 5/8 without any obstruction.
monitor symptoms; if able to tolerate diet and symptoms improving then likely dc tomorrow
Alcohol use with dependance
hyperkalemia
Resolved
Low folic acid
Replete
Thrombocytopenia likely secondary to alcohol
Monitor
Hypoglycemia secondary to seizure
-Glucose level improved following OJ and Dextrose given in ED
Hypothyroidism
-TSH 81.70
Discussed with patient again, now she is reporting that she might of missed few doses before
-Continue levothyroxine
-Recommend repeat testing as outpatient in 4-6 weeks
Macrocytic Anemia and Thrombocytopenia, likely related to Alcohol
-Monitor counts
GERD / Gastritis
-Stop Carafate
-Continue Protonix - May need to consider stopping if patient develops recurrent electrolyte abnormalities
CT done without oral contrast, early acute appendicitis cannot be entirely excluded., patient denies any right lower quadrant pain. Currently without any leukocytosis, fever. Will continue to monitor and if pain does not improve or get worse then
will get surgery evaluation.
Alcohol Use Disorder
-Continue thiamine and folic acid
-Continue alcohol withdrawal protocol
DVT proph: SCDs
Code Status: Full Code
Anticipated Discharge: Within 24 hours
Subjective/Interval History
-
Date of Service: July 02, 2024
denies nausea
Objective Data
-
Labs:
Laboratory Results
07/02/24
07:48
WBC 4.2 L
Hgb 9.4 L
Hct 27.6 L
Plt Count 70 L
Sodium 137
Potassium 3.5
Chloride 106
Carbon Dioxide 24
BUN 4 L
Creatinine 0.6
Glucose 80
Calcium 8.2 L
Total Bilirubin 0.6
AST 57 H
ALT 22
Alkaline Phosphatase 87
Vital Signs:
Vital Signs
Temp Pulse Resp BP Pulse Ox
97.4 F 82 17 122/93 98
07/02/24 07:00 07/02/24 07:00 07/02/24 07:00 07/02/24 07:00 07/02/24 07:00
I&O
07/01/24 07/02/24 07/03/24
06:59 06:59 06:59
Intake Total 2160 / 2160 960 / 960
Balance 2160 / 2160 960 / 960
--- NOTE | 2024-07-02 12:15 | W.PN.GI.CBS2 ---
Today's Communication / Plan
-
continue bowel regimen
correction of hypothyrodisim
Assessment / Plan
-
34-year-old female with past medical history of hypothyroidism, seizure disorder, opioid/alcohol abuse, recent facial trauma without fracture, recent diagnosis of 'gastritis and colitis' at hospitalization at [facility] 3 weeks ago
with EGD performed by per patient, chronic constipation who presented to ER on 06/28/24 after a reported witness seizure at home. Patient had an elevated ETOH level at arrival. We are asked to evaluate for abdominal pain. Patient with similar
pain that has been ongoing for approx 2 months. Had EGD that per patient had gastritis placed on Pantoprazole and Carafate QID. Chronic ETOH use. Chronic constipation requiring milk of magnesia multiple times a week to produce BM, then having
subsequent diarrhea. Also with severe hypothyroidism with TSH of 81. CT findings of fatty liver, and few small right lower quadrant mesenteric lymph nodes and some mild mesenteric stranding, could represent mesenteric adenitis. Repeat CT with oral
contrast showed Suggestion of some thickening of the wall of the segment of the distal ileum proximal to the terminal ileum as well as possible thickening of the wall of portions of the unopacified right colon questionably also involving the sigmoid
colon. Findings at least raise concern for inflammatory process such as Inflammatory Bowel Disease or other inflammatory/infectious process. Patient has not had BM since prior to arrival. She apparently states that she had similar imaging at
[facility] as she said she had 'colitis' with lack of diarrhea and colonoscopy. Patient's brother with hx of either UC or Crohns disease and she was to have eventual colonoscopy.
--Abdominal pain/constipation.
-- Alcohol/opioid abuse
-- Seizure
-- Severe hypothyroidism
-- Thrombocytopenia / pancytopenia
--Fatty liver
CT Abd/Pelvis with oral contrast 07/01/24:
Limited evaluation of the intestinal tract without intravenous contrast and without oral contrast opacification of virtually the entire large bowel. Suggestion of some thickening of the wall of the segment of the distal ileum proximal to the
terminal ileum as well as possible thickening of the wall of portions of the unopacified right colon questionably also involving the sigmoid colon. Findings at least raise concern for inflammatory process such as Inflammatory Bowel Disease or other
inflammatory/ infectious process.
plan
Patient's abdominal pain can be multifactorial secondary to constipation vs opioid / ETOH abuse vs colitis etc. Will give a dose of mag citrate followed by daily bowel regimen.
Had multiple BMs after mag citrate. She claims her abdominal discomfort is better after bowel movements. Repeat abdominal x-ray ths am -no evidence of obstruction no significant fecal burden.will maintain on regular bowel regimen with miralax /
metamucil
Check stool calprotectin
Would recommend outpatient colonoscopy +/- MR enterography for further eval of abnormal CT. Patient has seen in the past and underwent EGD with him . Will recommend follow up with him
Advised to avoid alcohol
continue PPI
Optimal management of hypothyroidism as per medical team ( last TSH 81 )-hypothyroidism can be a contributory factor for severe constipation. discussed with medical team - non compliance with Rx
Electrolyte correction as per medical team
no further recommendations. will s/o
Total Time Spent with Patient (in minutes): 35
Subjective
Subjective
Date of Service: July 02, 2024
Had multiple loose bowel movements after laxatives yesterday. Abdominal pain is better. Denies any nausea vomiting
Objective
Data Reviewed
Laboratory Data:
Laboratory Results
07/02/24 07:48
07/02/24 07:48
Laboratory Results
PT 15.3 Sec (11.4-14.6) H 06/29/24 04:16
INR 1.18 06/29/24 04:16
APTT 44.5 Sec (23.4-35.0) H 06/28/24 15:08
Phosphorus 2.8 mg/dl (2.5-4.5) 07/02/24 07:48
Magnesium 2.4 mg/dl (1.6-2.3) H 07/02/24 07:48
Total Bilirubin 0.6 mg/dl (0.2-1.3) 07/02/24 07:48
AST 57 U/L (14-36) H 07/02/24 07:48
ALT 22 U/L (0-35) 07/02/24 07:48
Alkaline Phosphatase 87 U/L (38-126) 07/02/24 07:48
Lipase 483 U/L (23-300) H 06/28/24 23:37
Vital Signs and I&O:
Vital Signs
Temp Pulse Resp BP Pulse Ox
97.4 F 82 17 122/93 98
07/02/24 07:00 07/02/24 07:00 07/02/24 07:00 07/02/24 07:00 07/02/24 07:00
I&O
07/01/24 07/02/24 07/03/24
06:59 06:59 06:59
Intake Total 2160 / 2160 960 / 960
Balance 2160 / 2160 960 / 960
Physical Exam
Physical Exam
GI: Soft, Non Distended and Non Tender
[2024-07-02] MEDS: TYLENOL 650 MG PO ×2 (13:23→17:50)
[2024-07-02 15:00] VITALS: BP 124/95
--- NOTE | 2024-07-02 15:07 | CM ---
Chart reviewed. Care ongoing
Poss d/c tomorrow if GI symptoms improves and tolerates diet
No CM needs at this time
Plan: Home, no needs when stable
[2024-07-02 23:54] VITALS: BP 128/86
[2024-07-03] MEDS: SYNTHROID 75 MCG PO (05:34)
[2024-07-03] MEDS: TYLENOL 650 MG PO ×4 (05:36→20:15)
[2024-07-03 07:00] VITALS: BP 129/98
[2024-07-03 08:11] LABS: % Basophils 0.8 % (0-2); % Eosinophils 7.1 % (0-6); % Immature Granulocytes 0.5 % (0-0.5); % Lymphocytes 28.1 % (20.5-51.1); % Monocytes 6.6 % (1.7-9.3); % Neutrophils 56.9 % (42.2-75.2); Absolute Eosinophils 0.3 10^3/uL (0-0.7); Absolute Lymphocytes 1.1 10^3/uL (1.2-3.4); Absolute Monocytes 0.3 10^3/uL (0.1-0.6); Absolute Neutrophils 2.3 10^3/uL (1.4-6.5); Hematocrit 27.1 % (37.0-47.0); Hemoglobin 9.3 g/dL (12.0-16.0); Mean Corp Hgb Conc. 34.3 g/dL (33.0-37.0); Mean Corpuscular Hgb 36.6 pg (27.0-31.0); Mean Corpuscular Volume 106.7 fL (81.0-99.0); Mean Platelet Volume 9.9 fL (7.4-10.4); Nucleated Red Blood Cells % 0 %; Platelet Count 78 10^3/uL (130-400); Red Blood Cell Count 2.54 10^6/uL (4.20-5.40); Red Cell Dist. Width 14.4 % (11.5-14.5)
[2024-07-03 08:25] LABS: ALT (SGPT) 21 U/L (0-35); AST (SGOT) 45 U/L (14-36); Albumin 3.6 g/dl (3.5-5.0); Alkaline Phosphatase 66 U/L (38-126); Blood Urea Nitrogen 2 mg/dl (7-17); Calcium 8.4 mg/dl (8.4-10.2); Carbon Dioxide 25 mmol/L (22-30); Chloride 105 mmol/L (98-107); Estimated Creatinine Clearance 98 ml/min; Glucose 80 mg/dl (70-99); Phosphorus 3.2 mg/dl (2.5-4.5); Potassium 3.4 mmol/L (3.5-5.1); Sodium 137 mmol/L (135-145); Total Bilirubin 0.7 mg/dl (0.2-1.3); Total Protein 6.2 g/dl (6.3-8.2); eGFR > 60.00
[2024-07-03] MEDS: TIGAN 200 MG IM (10:21)
[2024-07-03] MEDS: MAALOX 30 ML PO (10:28)
[2024-07-03] MEDS: PROTONIX 40 MG PO ×2 (11:08→20:11)
[2024-07-03] MEDS: KEPPRA 500 MG PO ×2 (11:08→20:11)
[2024-07-03] MEDS: CARAFATE 1 GRAM PO ×3 (11:09→21:12)
[2024-07-03] MEDS: FOLVITE 1 MG PO (11:09)
[2024-07-03] MEDS: VITAMIN B1 100 MG PO ×2 (11:10→20:11)
[2024-07-03] MEDS: KCL 40 MEQ PO (11:10)
--- NOTE | 2024-07-03 13:21 | W.PN.HOSP.TC ---
Today's Communication/Plan
-
monitor vitals
see plan
Still with persistent GI symptoms, asked GI to see again
Fluids
cw keppra
ppi
Assessment / Plan
Assessment / Plan
General: Well Developed, Well Nourished and No Apparent Distress
HEENT: NormoCephalic, Anicteric, Moist mucous membranes and Atraumatic
Respiratory: Clear and Non Labored Respirations; No Wheezes, Rales or Rhonchi
Cardiac: S1/S2 and Regular Rhythm; No Murmur
GI: Soft, Non Tender, Non Distended and Normal Bowel Sounds
Musculoskeletal: Edema
Neuro: Awake, Alert, Oriented and Nonfocal/grossly intact
Psych: Calm
Seizure, possibly alcohol withdrawal vs untreated seizure disorder
Neurology following
Continue Keppra
MRI brain without acute CVA
-Continue Keppra
-Continue seizure precautions; reports remote history of seizure
Reported DMV per neurology recommendation, patient aware
Also on alcohol withdrawal, MSAS
Severe Electrolyte Abnormalities (Hypokalemia, Hypomagnesemia, Hypocalcemia), secondary to Alcohol Use
-Replace potassium, magnesium and calcium
Elevated PTH, patient to follow-up with PCP outpatient
has severe GERD too. restarted carafate. PPI
trial of maalox
Elevated LFTs
US without acute biliary abnormality. Fatty infiltration of the liver. Nephrolithiasis. No evidence of pelvicalyceal dilation
Monitor
GERD / Gastritis
Restarted Carafate
-Continue Protonix
CT done without oral contrast, early acute appendicitis cannot be entirely excluded., patient denies any right lower quadrant pain. Currently without any leukocytosis, fever. Will continue to monitor and if pain does not improve or get worse then
will get surgery evaluation.
Still with abdominal pain, check CT abdomen/pelvis with p.o. contrast also not optimal study since patient could not tolerate enteric contrast. Discussed with GI. Symptoms could also be secondary to constipation. Status post mag citrate with
multiple BMs. abdomen X-ray 07/02 without any obstruction.
monitor symptoms; if able to tolerate diet and symptoms improving then likely dc tomorrow
Repeat CT with oral contrast showed Suggestion of some thickening of the wall of the segment of the distal ileum proximal to the terminal ileum as well as possible thickening of the wall of portions of the unopacified right colon questionably also
involving the sigmoid colon. Findings at least raise concern for inflammatory process such as Inflammatory Bowel Disease or other inflammatory/infectious process. GI recommended outpatient colonoscopy +/- MR enterography for further eval of
abnormal CT
Still with persistent nausea and abdominal discomfort. Asked GI to see again
Alcohol use with dependance
hyperkalemia
Resolved
Low folic acid
Replete
Thrombocytopenia likely secondary to alcohol
Monitor
Hypoglycemia secondary to seizure
-Glucose level improved following OJ and Dextrose given in ED
Hypothyroidism
-TSH 81.70
Discussed with patient again, now she is reporting that she might of missed few doses before
-Continue levothyroxine
-Recommend repeat testing as outpatient in 4-6 weeks
Macrocytic Anemia and Thrombocytopenia, likely related to Alcohol
-Monitor counts
GERD / Gastritis
-Stop Carafate
-Continue Protonix - May need to consider stopping if patient develops recurrent electrolyte abnormalities
CT done without oral contrast, early acute appendicitis cannot be entirely excluded., patient denies any right lower quadrant pain. Currently without any leukocytosis, fever. Will continue to monitor and if pain does not improve or get worse then
will get surgery evaluation.
Alcohol Use Disorder
-Continue thiamine and folic acid
-Continue alcohol withdrawal protocol
DVT proph: SCDs
Code Status: Full Code
Anticipated Discharge: Within 24 hours
Subjective/Interval History
-
Date of Service: July 03, 2024
nausea this morning
Objective Data
-
Labs:
Laboratory Results
07/03/24
06:31
WBC 4.0 L
Hgb 9.3 L
Hct 27.1 L
Plt Count 78 L
Sodium 137
Potassium 3.4 L
Chloride 105
Carbon Dioxide 25
BUN 2 L
Creatinine 0.5 L
Glucose 80
Calcium 8.4
Total Bilirubin 0.7
AST 45 H
ALT 21
Alkaline Phosphatase 66
Vital Signs:
Vital Signs
Temp Pulse Resp BP Pulse Ox
97.6 F 80 16 129/98 100
07/03/24 07:00 07/03/24 07:00 07/03/24 07:00 07/03/24 07:00 07/03/24 07:00
I&O
07/02/24 07/03/24 07/04/24
06:59 06:59 06:59
Intake Total 960 / 960 1200 / 1200
Balance 960 / 960 1200 / 1200
--- NOTE | 2024-07-03 13:30 | PTCARENOTE ---
1300 Pt mention was in bathroom, felt dizzy and felt heart was beating fast. Pt c/o chest pain, pt pointed to midchest/epigastric area.
Checked BP 132/85 pulse 100 resp 18 pulse ox 100% on room air. Dr. Duong notified, ordered EKG. aware of EKG results and ordered to place pt on telemetry. Troponin level ordered. Place on telemetry (current heart rhythm, Sinus rhythm (heart rate
90's to low 100's)
1330 Pt mention chest pain subsided, continue to monitor pt closely.
--- NOTE | 2024-07-03 13:52 | W.PN.GI.CBS2 ---
Today's Communication / Plan
-
Please see assessment and plan for details.
Assessment / Plan
-
1. Odynophagia: Consistent with esophagitis which was noted on EGD at [facility]. Her chest fluttering was likely not related, though her esophagitis is likely adding to her decreased oral intake. We discussed continued supportive care
including dietary modifications, PPI and sucralfate for now.
2. Abdominal pain : Likely multifactorial, likely more from constipation, now status post extensive bowel regimen with some loose stools. There was a question of ileal and sigmoid thickening, though again had been more constipation and diarrhea
only since extensive bowel regimen, possible underlying stercoral colitis. At this point we will hold on colonoscopy for now given likely other etiologies then inflammatory bowel disease which seems less likely, and likely not able to tolerate prep
at this time. As discussed previously assuming she continues to improve with follow-up with Dr. Dupont for continued outpatient workup.ze
Subjective
Subjective
Date of Service: July 03, 2024
Callback to see patient for abdominal pain and odynophagia. She states that when she went to go to the bathroom she noticed a fluttering in her chest which was concerning. She is also been describing epigastric and substernal chest discomfort
worse with eating. This was similar to her symptoms when she went to [facility] where endoscopy showed esophagitis by her report. She has been having loose stools after extensive bowel regimen for constipation, but denies any blood, fever,
chills.
Objective
Data Reviewed
Laboratory Data:
Laboratory Results
07/03/24 06:31
07/03/24 06:31
Laboratory Results
PT 15.3 Sec (11.4-14.6) H 06/29/24 04:16
INR 1.18 06/29/24 04:16
APTT 44.5 Sec (23.4-35.0) H 06/28/24 15:08
Phosphorus 3.2 mg/dl (2.5-4.5) 07/03/24 06:31
Magnesium 2.0 mg/dl (1.6-2.3) 07/03/24 06:31
Total Bilirubin 0.7 mg/dl (0.2-1.3) 07/03/24 06:31
AST 45 U/L (14-36) H 07/03/24 06:31
ALT 21 U/L (0-35) 07/03/24 06:31
Alkaline Phosphatase 66 U/L (38-126) 07/03/24 06:31
Lipase 483 U/L (23-300) H 06/28/24 23:37
Vital Signs and I&O:
Vital Signs
Temp Pulse Resp BP Pulse Ox
97.6 F 80 16 129/98 100
07/03/24 07:00 07/03/24 07:00 07/03/24 07:00 07/03/24 07:00 07/03/24 07:00
I&O
07/02/24 07/03/24 07/04/24
06:59 06:59 06:59
Intake Total 960 / 960 1200 / 1200
Balance 960 / 960 1200 / 1200
Physical Exam
Physical Exam
General: NAD
Abdomen: normal bowel sounds, soft, mild epigastric tenderness, no masses or bruits, no ascites
[2024-07-03 14:41] LABS: Troponin I < 0.012 ng/ml
[2024-07-03 15:00] VITALS: BP 137/96
[2024-07-03] MEDS: NSS 1000 IV (15:34)
[2024-07-03 19:50] VITALS: BP 113/87
[2024-07-03] MEDS: MELATONIN 5 MG PO (22:19)
[2024-07-03 23:17] VITALS: BP 117/91
[2024-07-04] MEDS: NSS 1000 IV ×2 (03:35→16:27)
[2024-07-04 05:28] VITALS: BP 118/84
[2024-07-04] MEDS: SYNTHROID 75 MCG PO (06:08)
[2024-07-04 07:27] VITALS: BP 119/87
[2024-07-04 07:47] LABS: % Basophils 0.7 % (0-2); % Eosinophils 5.4 % (0-6); % Immature Granulocytes 0.7 % (0-0.5); % Lymphocytes 25.6 % (20.5-51.1); % Monocytes 7.7 % (1.7-9.3); % Neutrophils 59.9 % (42.2-75.2); Absolute Eosinophils 0.2 10^3/uL (0-0.7); Absolute Lymphocytes 1.1 10^3/uL (1.2-3.4); Absolute Monocytes 0.3 10^3/uL (0.1-0.6); Absolute Neutrophils 2.6 10^3/uL (1.4-6.5); Hematocrit 28.3 % (37.0-47.0); Hemoglobin 9.9 g/dL (12.0-16.0); Mean Corpuscular Volume 102.9 fL (81.0-99.0); Mean Platelet Volume 9.9 fL (7.4-10.4); Nucleated Red Blood Cells % 0 %; Platelet Count 107 10^3/uL (130-400); Red Blood Cell Count 2.75 10^6/uL (4.20-5.40); Red Cell Dist. Width 14.3 % (11.5-14.5); White Blood Cell Count 4.4 10^3/uL (4.8-10.8)
[2024-07-04 08:20] LABS: ALT (SGPT) 19 U/L (0-35); AST (SGOT) 39 U/L (14-36); Albumin 3.8 g/dl (3.5-5.0); Alkaline Phosphatase 70 U/L (38-126); Blood Urea Nitrogen 2 mg/dl (7-17); Carbon Dioxide 24 mmol/L (22-30); Chloride 106 mmol/L (98-107); Estimated Creatinine Clearance 98 ml/min; Glucose 69 mg/dl (70-99); Phosphorus 3.4 mg/dl (2.5-4.5); Potassium 3.8 mmol/L (3.5-5.1); Sodium 137 mmol/L (135-145); Total Bilirubin 0.7 mg/dl (0.2-1.3); Total Protein 6.5 g/dl (6.3-8.2); eGFR > 60.00
[2024-07-04] MEDS: TYLENOL 650 MG PO ×4 (08:38→23:01)
[2024-07-04] MEDS: CARAFATE 1 GRAM PO (08:40)
[2024-07-04] MEDS: VITAMIN B1 100 MG PO ×2 (08:41→20:06)
[2024-07-04] MEDS: KEPPRA 500 MG PO ×2 (08:42→20:06)
[2024-07-04] MEDS: PROTONIX 40 MG PO ×2 (08:42→20:06)
[2024-07-04] MEDS: ZOFRAN 4 MG IV (08:53)
[2024-07-04] MEDS: FOLVITE PO (09:00)
--- NOTE | 2024-07-04 09:59 | W.PN.GI.CBS2 ---
Addendum entered and electronically signed by Raul Cervantes MD 07/04/24 11:18:
Patient seen and examined, agree with nurse practitioner note. Patient still complaining of pain, though had some chest pain with exertion, also some pain with eating, also complains of lower abdominal pain. She has odynophagia continued. On exam
has mild diffuse tenderness though no rebound or guarding.
1. Abdominal pain: Likely multifactorial, clinically think inflammatory bowel disease is much less likely given symptoms, likely some component of anxiety amplifying symptoms as well. At this point will change Carafate to suspension, continue PPI
and bowel regimen. Fecal calprotectin currently pending. Would plan outpatient colonoscopy in the future. Will continue Ativan as needed per internal medicine.
Addendum entered and electronically signed by NICO Tong 07/04/24 11:07:
with continued symptoms changed carafate to liquid and changed ativan to PRN for anxiety
Original Note:
Today's Communication / Plan
-
see below for plan
cont antiemetic
encouraged diet
ETOH abstinence
OP follow up for colonoscopy and SB imaging
Assessment / Plan
-
1. Odynophagia: Consistent with esophagitis which was noted on EGD at [facility]. still with some complaint, cont carafate and PPI supportive car
2. nausea/vomiting -- pt c/o vomiting this am s/p zofran given about 1 hours ago with continue symptoms -if not improving consider adding compazine, BRAT diet as tolerated-- advance as able
3. Abdominal pain : Likely multifactorial, There was a question of ileal and sigmoid thickening - holding on colonoscopy for now OP follow up for OP colonoscopy -- likely unable to tolerate prep at this time
4. constipation then diarrhea -- low with some loose stools continued on miralax daily as carafate can be constipating-- fecal calpro pending
5. TSH
6. ETOH abuse LF T's improving-- ETOH abstinence
7. thrombocytopenia/ macrocytic anemia/pancytopenia
Subjective
Subjective
Date of Service: July 04, 2024
07/04 brown stool and now with several stool and liquid stools, on BRAT diet but still nausea and vomited up medication today with Zofran just given
Objective
Data Reviewed
Laboratory Data:
Laboratory Results
07/04/24 06:49
07/04/24 06:49
Laboratory Results
PT 15.3 Sec (11.4-14.6) H 06/29/24 04:16
INR 1.18 06/29/24 04:16
APTT 44.5 Sec (23.4-35.0) H 06/28/24 15:08
Phosphorus 3.4 mg/dl (2.5-4.5) 07/04/24 06:49
Magnesium 2.0 mg/dl (1.6-2.3) 07/04/24 06:49
Total Bilirubin 0.7 mg/dl (0.2-1.3) 07/04/24 06:49
AST 39 U/L (14-36) H 07/04/24 06:49
ALT 19 U/L (0-35) 07/04/24 06:49
Alkaline Phosphatase 70 U/L (38-126) 07/04/24 06:49
Lipase 483 U/L (23-300) H 06/28/24 23:37
Vital Signs and I&O:
Vital Signs
Temp Pulse Resp BP Pulse Ox
97.8 F 85 18 119/87 98
07/04/24 07:27 07/04/24 07:27 07/04/24 07:27 07/04/24 07:27 07/04/24 07:27
I&O
07/03/24 07/04/24 07/05/24
06:59 06:59 06:59
Intake Total 1200 / 1200 1999 / 1999
Balance 1200 / 1200 1999
Physical Exam
Physical Exam
HEENT: Anicteric and Moist mucous membranes
Cardiology: Normal Sinus Rhythm
Pulmonary: Clear
GI: Soft and Non Distended
Extremities: No Edema
Neuro: Non Focal
[2024-07-04 10:39] VITALS: BP 144/108
[2024-07-04] MEDS: ATIVAN 0.5 MG PO ×4 (11:07→23:01)
--- NOTE | 2024-07-04 11:30 | PTCARENOTE ---
10:50 am Pt c/o severe abdominal pain ( pt upset, crying), current tylenol [address] Duong aware. Christiana Man [employer] SURVEYOR (GI) here to see pt and aware. Change carafate to liquid form and ordered Ativan 0.5 mg po ordered PRN.
11:00 am Ativan 0.5 mg po given with relief, continue to monitor pt closely.
--- NOTE | 2024-07-04 13:16 | W.PN.HOSP.TC ---
Today's Communication/Plan
-
Monitor vital signs and see plan
Zofran as needed
Brat diet
GI following
Ativan as needed
Assessment / Plan
Assessment / Plan
General: Well Developed, Well Nourished and No Apparent Distress
HEENT: NormoCephalic, Anicteric, Moist mucous membranes and Atraumatic
Respiratory: Clear and Non Labored Respirations; No Wheezes, Rales or Rhonchi
Cardiac: S1/S2 and Regular Rhythm; No Murmur
GI: Soft, Non Tender, Non Distended and Normal Bowel Sounds
Musculoskeletal: Edema
Neuro: Awake, Alert, Oriented and Nonfocal/grossly intact
Psych: Calm
Seizure, possibly alcohol withdrawal vs untreated seizure disorder
Neurology following
Continue Keppra per neurology
MRI brain without acute CVA
-Continue seizure precautions; reports remote history of seizure
Reported DMV per neurology recommendation, patient aware
Also on alcohol withdrawal, MSAS
Severe Electrolyte Abnormalities (Hypokalemia, Hypomagnesemia, Hypocalcemia), secondary to Alcohol Use
-Replace potassium, magnesium and calcium
Elevated PTH, patient to follow-up with PCP outpatient
has severe GERD too. restarted carafate.changed to supecsion. PPI
Elevated LFTs
US without acute biliary abnormality. Fatty infiltration of the liver. Nephrolithiasis. No evidence of pelvicalyceal dilation
Monitor
GERD / Gastritis
Restarted Carafate
-Continue Protonix
CT done without oral contrast, early acute appendicitis cannot be entirely excluded., patient denies any right lower quadrant pain. Currently without any leukocytosis, fever. Will continue to monitor and if pain does not improve or get worse then
will get surgery evaluation.
Still with abdominal pain, check CT abdomen/pelvis with p.o. contrast also not optimal study since patient could not tolerate enteric contrast. Discussed with GI. Symptoms could also be secondary to constipation. Status post mag citrate with
multiple BMs. abdomen X-ray 07/02 without any obstruction.
monitor symptoms; if able to tolerate diet and symptoms improving then likely dc tomorrow
Repeat CT with oral contrast showed Suggestion of some thickening of the wall of the segment of the distal ileum proximal to the terminal ileum as well as possible thickening of the wall of portions of the unopacified right colon questionably also
involving the sigmoid colon. Findings at least raise concern for inflammatory process such as Inflammatory Bowel Disease or other inflammatory/infectious process. GI recommended outpatient colonoscopy +/- MR enterography for further eval of
abnormal CT
Still with persistent nausea and abdominal discomfort. GI reconsulted. BRAT diet. Abdominal pain per GI appears multifactorial. Colonoscopy outpatient.
Alcohol use with dependance
hyperkalemia
Resolved
Low folic acid
Replete
Thrombocytopenia likely secondary to alcohol
Monitor
Hypoglycemia secondary to seizure
-Glucose level improved following OJ and Dextrose given in ED
Hypothyroidism
-TSH 81.70
Discussed with patient again, now she is reporting that she might of missed few doses before
-Continue levothyroxine
-Recommend repeat testing as outpatient in 4-6 weeks
Macrocytic Anemia and Thrombocytopenia, likely related to Alcohol
-Monitor counts
suspect anxiety component
Gi started ativan prn
Alcohol Use Disorder
-Continue thiamine and folic acid
no signs of withrawal now
DVT proph: SCDs
Code Status: Full Code
Anticipated Discharge: 24 - 48 hours
Subjective/Interval History
-
Date of Service: July 04, 2024
Continues to be nauseous
Objective Data
-
Labs:
Laboratory Results
07/04/24
06:49
WBC 4.4 L
Hgb 9.9 L
Hct 28.3 L
Plt Count 107 L D
Sodium 137
Potassium 3.8
Chloride 106
Carbon Dioxide 24
BUN 2 L
Creatinine 0.6
Glucose 69 L
Calcium 9.0
Total Bilirubin 0.7
AST 39 H
ALT 19
Alkaline Phosphatase 70
Vital Signs:
Vital Signs
Temp Pulse Resp BP Pulse Ox
99.3 F 97 23 144/108 99
07/04/24 10:39 07/04/24 10:39 07/04/24 10:39 07/04/24 10:39 07/04/24 10:39
I&O
07/03/24 07/04/24 07/05/24
06:59 06:59 06:59
Intake Total 1200 / 1200 1999
Balance 1200 / 1200 1999
[2024-07-04] MEDS: CARAFATE SUSPENSION 1 GM PO ×3 (13:36→22:11)
[2024-07-04 15:03] LABS: Calprotectin, Fecal 124 ug/g (<=49)
[2024-07-04 15:17] VITALS: BP 110/79
[2024-07-04 18:28] VITALS: BP 117/83
[2024-07-04 23:11] VITALS: BP 114/84
[2024-07-05 03:49] VITALS: BP 118/87
[2024-07-05] MEDS: NSS 1000 IV ×2 (04:54→14:20)
[2024-07-05] MEDS: SYNTHROID 75 MCG PO (04:55)
[2024-07-05] MEDS: ATIVAN 0.5 MG PO ×5 (05:55→22:39)
[2024-07-05] MEDS: TYLENOL 650 MG PO ×5 (05:55→22:39)
[2024-07-05] MEDS: KEPPRA 500 MG PO ×2 (07:18→20:52)
[2024-07-05] MEDS: PROTONIX 40 MG PO ×2 (07:18→20:52)
[2024-07-05] MEDS: VITAMIN B1 100 MG PO ×2 (07:18→20:52)
[2024-07-05] MEDS: FOLVITE 1 MG PO (07:18)
[2024-07-05] MEDS: CARAFATE SUSPENSION 1 GM PO ×4 (07:18→21:59)
[2024-07-05 07:32] VITALS: BP 166/90
[2024-07-05 07:39] LABS: Hematocrit 27.6 % (37.0-47.0); Hemoglobin 9.4 g/dL (12.0-16.0); Mean Corp Hgb Conc. 34.1 g/dL (33.0-37.0); Mean Corpuscular Hgb 36.2 pg (27.0-31.0); Mean Corpuscular Volume 106.2 fL (81.0-99.0); Red Cell Dist. Width 14.2 % (11.5-14.5)
[2024-07-05 07:40] LABS: % Basophils 1.3 % (0-2); % Immature Granulocytes 0.5 % (0-0.5); % Lymphocytes 34.8 % (20.5-51.1); % Monocytes 7.3 % (1.7-9.3); % Neutrophils 52.1 % (42.2-75.2); Absolute Basophils 0.1 10^3/uL (0-0.2); Absolute Eosinophils 0.2 10^3/uL (0-0.7); Absolute Lymphocytes 1.4 10^3/uL (1.2-3.4); Absolute Monocytes 0.3 10^3/uL (0.1-0.6); Absolute Neutrophils 2.1 10^3/uL (1.4-6.5); Nucleated Red Blood Cells % 0 %
[2024-07-05 07:55] LABS: ALT (SGPT) 17 U/L (0-35); AST (SGOT) 36 U/L (14-36); Albumin 3.8 g/dl (3.5-5.0); Alkaline Phosphatase 68 U/L (38-126); Blood Urea Nitrogen 5 mg/dl (7-17); Calcium 8.9 mg/dl (8.4-10.2); Carbon Dioxide 26 mmol/L (22-30); Chloride 106 mmol/L (98-107); Estimated Creatinine Clearance 98 ml/min; Glucose 66 mg/dl (70-99); Magnesium 1.8 mg/dl (1.6-2.3); Phosphorus 3.3 mg/dl (2.5-4.5); Sodium 138 mmol/L (135-145); Total Bilirubin 0.7 mg/dl (0.2-1.3); Total Protein 6.7 g/dl (6.3-8.2); eGFR > 60.00
--- NOTE | 2024-07-05 09:42 | W.PN.GI.CBS2 ---
Today's Communication / Plan
-
Please see assessment and plan for details.
Assessment / Plan
-
1. Odynophagia: Esophagitis noted on EGD from [facility], overall doing much better, tolerating diet without difficulty with combination of PPI and Carafate suspension. Would continue for now.
2. Abdominal pain: Likely multifactorial, with possible colitis and ileitis noted, though no significant diarrhea, overall much improve since starting Ativan. She is tolerated diet without difficulty.d
She is okay to VT from GI standpoint, will plan continued outpatient follow-up with Dr. Rdz at [facility]. We will sign off now, please call back with any further questions.
Subjective
Subjective
Date of Service: July 05, 2024
Patient feeling well overall, tolerated diet without difficulty, with combination of Ativan and Carafate fate suspension. She denies further abdominal pain, vomiting.
Objective
Data Reviewed
Laboratory Data:
Laboratory Results
07/05/24 06:39
07/05/24 06:39
Laboratory Results
PT 15.3 Sec (11.4-14.6) H 06/29/24 04:16
INR 1.18 06/29/24 04:16
APTT 44.5 Sec (23.4-35.0) H 06/28/24 15:08
Phosphorus 3.3 mg/dl (2.5-4.5) 07/05/24 06:39
Magnesium 1.8 mg/dl (1.6-2.3) 07/05/24 06:39
Total Bilirubin 0.7 mg/dl (0.2-1.3) 07/05/24 06:39
AST 36 U/L (14-36) 07/05/24 06:39
ALT 17 U/L (0-35) 07/05/24 06:39
Alkaline Phosphatase 68 U/L (38-126) 07/05/24 06:39
Lipase 483 U/L (23-300) H 06/28/24 23:37
Vital Signs and I&O:
Vital Signs
Temp Pulse Resp BP Pulse Ox
98.1 F 82 18 166/90 100
07/05/24 07:32 07/05/24 07:32 07/05/24 07:32 07/05/24 07:32 07/05/24 07:32
I&O
07/04/24 07/05/24 07/06/24
06:59 06:59 06:59
Intake Total 1999 3110 / 3110
Balance 1999 / 3109
Physical Exam
Physical Exam
General: NAD
Abdomen: normal bowel sounds, soft, no tenderness, no masses or bruits, no ascites
[2024-07-05 10:57] VITALS: BP 117/86
--- NOTE | 2024-07-05 12:41 | W.PN.HOSP.TC ---
Today's Communication/Plan
-
monitor vitals
see plan
cw BRAT diet
cw IVF
ativan prn
if continue to improve with current management then potential dc tomorrow. will need close f/u with GI
Assessment / Plan
Assessment / Plan
General: Well Developed, Well Nourished and No Apparent Distress
HEENT: NormoCephalic, Anicteric, Moist mucous membranes and Atraumatic
Respiratory: Clear and Non Labored Respirations; No Wheezes, Rales or Rhonchi
Cardiac: S1/S2 and Regular Rhythm; No Murmur
GI: Soft, Non Tender, Non Distended and Normal Bowel Sounds
Musculoskeletal: Edema
Neuro: Awake, Alert, Oriented and Nonfocal/grossly intact
Psych: Calm
Seizure, possibly alcohol withdrawal vs untreated seizure disorder
Neurology following
Continue Keppra per neurology
MRI brain without acute CVA
-Continue seizure precautions; reports remote history of seizure
Reported DMV per neurology recommendation, patient aware
Also on alcohol withdrawal, MSAS
Severe Electrolyte Abnormalities (Hypokalemia, Hypomagnesemia, Hypocalcemia), secondary to Alcohol Use
-Replace potassium, magnesium and calcium as needed
Elevated PTH, patient to follow-up with PCP outpatient
has severe GERD too. restarted carafate.changed to suspension. PPI
Elevated LFTs
US without acute biliary abnormality. Fatty infiltration of the liver. Nephrolithiasis. No evidence of pelvicalyceal dilation
Monitor
GERD / Gastritis
-Continue Protonix
Still with abdominal pain, check CT abdomen/pelvis with p.o. contrast also not optimal study since patient could not tolerate enteric contrast. Discussed with GI. Symptoms could also be secondary to constipation. Status post mag citrate with
multiple BMs. abdomen X-ray 07/02 without any obstruction.
monitor symptoms; if able to tolerate diet and symptoms improving then likely dc tomorrow
Repeat CT with oral contrast showed Suggestion of some thickening of the wall of the segment of the distal ileum proximal to the terminal ileum as well as possible thickening of the wall of portions of the unopacified right colon questionably also
involving the sigmoid colon. Findings at least raise concern for inflammatory process such as Inflammatory Bowel Disease or other inflammatory/infectious process. GI recommended outpatient colonoscopy +/- MR enterography for further eval of
abnormal CT
Still with persistent nausea and abdominal discomfort. GI reconsulted. BRAT diet. Abdominal pain per GI appears multifactorial. Colonoscopy outpatient. Discussed with patient. Will continue with IV fluids for now as intermittently tolerating
diet. Once able to tolerate diet then likely discharge with close outpatient follow-up. might need few days of ativan prn until she sees pcp, she is aware.
Alcohol use with dependance
hyperkalemia
Resolved
Low folic acid
Replete
Thrombocytopenia likely secondary to alcohol
Monitor
Hypoglycemia secondary to seizure on admission
-Glucose level improved following OJ and Dextrose given in ED
Hypothyroidism
-TSH 81.70
Discussed with patient again, now she is reporting that she might of missed few doses before
-Continue levothyroxine
-Recommend repeat testing as outpatient in 4-6 weeks
Macrocytic Anemia and Thrombocytopenia, likely related to Alcohol
-Monitor counts
suspect anxiety component
Gi started ativan prn
Alcohol Use Disorder
-Continue thiamine and folic acid
no signs of withdrawal now
DVT proph: SCDs
Code Status: Full Code
Anticipated Discharge: Within 24 hours
Subjective/Interval History
-
Date of Service: July 05, 2024
feeling little better
Objective Data
-
Labs:
Laboratory Results
07/05/24
06:39
WBC 4.0 L
Hgb 9.4 L
Hct 27.6 L
Plt Count
Sodium 138
Potassium 4.0
Chloride 106
Carbon Dioxide 26
BUN 5 L
Creatinine 0.6
Glucose 66 L
Calcium 8.9
Total Bilirubin 0.7
AST 36
ALT 17
Alkaline Phosphatase 68
Vital Signs:
Vital Signs
Temp Pulse Resp BP Pulse Ox
98.4 F 92 18 117/86 99
07/05/24 10:57 07/05/24 10:57 07/05/24 10:57 07/05/24 10:57 07/05/24 10:57
I&O
07/04/24 07/05/24 07/06/24
06:59 06:59 06:59
Intake Total 1999 3110 / 3110
Balance 1999 3110 / 3110
[2024-07-05 15:08] VITALS: BP 121/83
[2024-07-05 19:39] VITALS: BP 132/85
[2024-07-05 23:09] VITALS: BP 119/93
[2024-07-06 03:13] VITALS: BP 111/81
[2024-07-06] MEDS: TYLENOL 650 MG PO ×5 (03:45→22:43)
[2024-07-06] MEDS: ATIVAN 0.5 MG PO ×5 (03:45→22:42)
[2024-07-06] MEDS: SYNTHROID 75 MCG PO (05:36)
[2024-07-06 07:00] VITALS: BP 121/95
[2024-07-06] MEDS: CARAFATE SUSPENSION 1 GM PO ×4 (09:02→22:42)
[2024-07-06] MEDS: KEPPRA 500 MG PO ×2 (09:03→20:03)
[2024-07-06] MEDS: VITAMIN B1 100 MG PO ×2 (09:03→20:03)
[2024-07-06] MEDS: FOLVITE 1 MG PO (09:06)
[2024-07-06] MEDS: PROTONIX 40 MG PO ×2 (09:06→20:03)
[2024-07-06 10:50] LABS: % Basophils 1.1 % (0-2); % Eosinophils 5.8 % (0-6); % Immature Granulocytes 0.7 % (0-0.5); % Lymphocytes 32.4 % (20.5-51.1); % Monocytes 11.5 % (1.7-9.3); % Neutrophils 48.5 % (42.2-75.2); Absolute Basophils 0.1 10^3/uL (0-0.2); Absolute Eosinophils 0.3 10^3/uL (0-0.7); Absolute Lymphocytes 1.5 10^3/uL (1.2-3.4); Absolute Monocytes 0.5 10^3/uL (0.1-0.6); Absolute Neutrophils 2.2 10^3/uL (1.4-6.5); Hematocrit 29.9 % (37.0-47.0); Hemoglobin 10.2 g/dL (12.0-16.0); Mean Corp Hgb Conc. 34.1 g/dL (33.0-37.0); Mean Corpuscular Volume 105.7 fL (81.0-99.0); Nucleated Red Blood Cells % 0 %; Platelet Count 218 10^3/uL (130-400); Red Blood Cell Count 2.83 10^6/uL (4.20-5.40); Red Cell Dist. Width 14.2 % (11.5-14.5); White Blood Cell Count 4.5 10^3/uL (4.8-10.8)
[2024-07-06 10:59] LABS: ALT (SGPT) 21 U/L (0-35); AST (SGOT) 44 U/L (14-36); Albumin 4.6 g/dl (3.5-5.0); Alkaline Phosphatase 77 U/L (38-126); Blood Urea Nitrogen 7 mg/dl (7-17); Calcium 9.5 mg/dl (8.4-10.2); Carbon Dioxide 27 mmol/L (22-30); Chloride 101 mmol/L (98-107); Estimated Creatinine Clearance 84 ml/min; Glucose 79 mg/dl (70-99); Magnesium 1.6 mg/dl (1.6-2.3); Potassium 3.8 mmol/L (3.5-5.1); Sodium 138 mmol/L (135-145); Total Bilirubin 0.6 mg/dl (0.2-1.3); Total Protein 7.4 g/dl (6.3-8.2); eGFR > 60.00
--- NOTE | 2024-07-06 13:10 | PTCARENOTE ---
1300 Noted on telemetry heart rate increase to 125 briefly. Checked pt, Pt was in bathroom,asymptomatic. Noted heart rate back to 90's to low 100's, continue telemetry and monitor pt closely.
[2024-07-06 14:07] VITALS: BP 124/93
[2024-07-06 15:00] VITALS: BP 108/82
--- NOTE | 2024-07-06 15:49 | W.PN.HOSP.TC ---
Today's Communication/Plan
-
Psych eval
DC planning
Assessment / Plan
Assessment / Plan
Seizure untreated seizure disorder vs hypoglycemia vs electrolyte disturbances
Neurology recommendations noted-started on Keppra by neurology advises to continue that and follow-up with neurology as outpatient.
MRI brain without acute CVA
-Continue seizure precautions; reports remote history of seizure
Reported DMV per neurology recommendation, patient aware
Also on alcohol withdrawal, MSAS-no signs
Severe Electrolyte Abnormalities (Hypokalemia, Hypomagnesemia, Hypocalcemia), secondary to Alcohol Use
-Replace potassium, magnesium and calcium as needed
Elevated PTH, patient to follow-up with PCP outpatient
has severe GERD too. restarted carafate.changed to suspension. PPI
Elevated LFTs
US without acute biliary abnormality. Fatty infiltration of the liver. Nephrolithiasis. No evidence of pelvicalyceal dilation
Monitor
GERD / Gastritis
-Continue Protonix
Still with abdominal pain, check CT abdomen/pelvis with p.o. contrast also not optimal study since patient could not tolerate enteric contrast. Discussed with GI. Symptoms could also be secondary to constipation. Status post mag citrate with
multiple BMs. abdomen X-ray 07/02 without any obstruction.
monitor symptoms; if able to tolerate diet and symptoms improving then likely dc tomorrow
Repeat CT with oral contrast showed Suggestion of some thickening of the wall of the segment of the distal ileum proximal to the terminal ileum as well as possible thickening of the wall of portions of the unopacified right colon questionably also
involving the sigmoid colon. Findings at least raise concern for inflammatory process such as Inflammatory Bowel Disease or other inflammatory/infectious process. GI recommended outpatient colonoscopy +/- MR enterography for further eval of
abnormal CT
Still with persistent nausea and abdominal discomfort. GI reconsulted. BRAT diet. Abdominal pain per GI appears multifactorial. Colonoscopy outpatient.
Now tolerating diet. Thinks Carafate is helping.
Generalized anxiety/depression disorder. Patient says she was having longstanding mood dysfunction and was on medication before and nothing now. She requests Ativan for anxiety and treatments of her anxiety. Consult psychiatric.
Alcohol use with dependance
No signs of alcohol withdrawal syndrome. Patient not keen on any rehab programs for alcohol use disorder.
hyperkalemia
Resolved
Low folic acid
Replete
Thrombocytopenia likely secondary to alcohol
Monitor
Hypoglycemia
-resolved
- Suspect sec to oral intake issues on admission.Now tolerating diet and no hypo
Hypothyroidism
-TSH 81.70
Discussed with patient again, now she is reporting that she might of missed few doses before
-Continue levothyroxine
-Recommend repeat testing as outpatient in 4-6 weeks
Macrocytic Anemia and Thrombocytopenia, likely related to Alcohol
-Monitor counts
suspect anxiety component
Gi started ativan prn
Alcohol Use Disorder
-Continue thiamine and folic acid
no signs of withdrawal now
DVT proph: SCDs
Code Status: Full Code
Anticipated Discharge: Within 24 hours
Subjective/Interval History
-
Date of Service: July 06, 2024
No further seizures.
Denies any nausea or vomiting. Carafate helps.
She says Ativan helps a lot with her anxiety and as well GI symptoms ,requesting a prescription. She has longstanding history of anxiety and depression and was on treatments in the past and has not followed with a psychologist or psychiatrist.
Objective Data
-
Labs:
Laboratory Results
07/06/24
09:56
WBC 4.5 L
Hgb 10.2 L
Hct 29.9 L
Plt Count 218 D
Sodium 138
Potassium 3.8
Chloride 101
Carbon Dioxide 27
BUN 7
Creatinine 0.7
Glucose 79
Calcium 9.5
Total Bilirubin 0.6
AST 44 H
ALT 21
Alkaline Phosphatase 77
Vital Signs:
Vital Signs
Temp Pulse Resp BP Pulse Ox
98.2 F 102 17 124/93 100
07/06/24 14:07 07/06/24 14:07 07/06/24 14:07 07/06/24 14:07 07/06/24 14:07
I&O
07/05/24 07/06/24 07/07/24
06:59 06:59 06:59
Intake Total 3110 / 3110 840 / 840
Balance 3110 / 3110 840 / 840
Physical Exam
-
General: No Apparent Distress
Respiratory: Clear to Auscultation and Non Labored Respirations; Negative Accessory Resp Muscle Use
Cardiac: Regular Rhythm and S1/S2
GI: Soft and Nontender
Neuro: AO x 3 and Tremors
Psych: Calm; Negative Confused or Agitated
--- NOTE | 2024-07-06 16:26 | CM ---
Chart reviewed. Psych consulted
CM will cont to follow for d/c planning
[2024-07-06 19:15] VITALS: BP 117/86
[2024-07-06 21:34] LABS: Glucose - Point of Care 86 mg/dl (70-99)
[2024-07-06 23:24] VITALS: BP 119/88
[2024-07-07 03:36] VITALS: BP 123/89
[2024-07-07] MEDS: TYLENOL 650 MG PO ×3 (03:42→11:55)
[2024-07-07] MEDS: ATIVAN 0.5 MG PO ×3 (03:43→11:55)
[2024-07-07] MEDS: SYNTHROID 75 MCG PO (05:55)
[2024-07-07 07:10] VITALS: BP 115/88
[2024-07-07] MEDS: CARAFATE SUSPENSION 1 GM PO ×2 (07:48→11:55)
[2024-07-07] MEDS: PROTONIX 40 MG PO (07:49)
[2024-07-07] MEDS: KEPPRA 500 MG PO (07:49)
[2024-07-07] MEDS: FOLVITE 1 MG PO (07:49)
[2024-07-07] MEDS: VITAMIN B1 100 MG PO (07:49)
[2024-07-07 08:02] LABS: Hematocrit 28.5 % (37.0-47.0); Mean Corp Hgb Conc. 35.1 g/dL (33.0-37.0); Mean Corpuscular Hgb 36.5 pg (27.0-31.0); Mean Platelet Volume 8.7 fL (7.4-10.4); Platelet Count 255 10^3/uL (130-400); Red Blood Cell Count 2.74 10^6/uL (4.20-5.40); White Blood Cell Count 4.2 10^3/uL (4.8-10.8)
[2024-07-07 08:33] LABS: ALT (SGPT) 18 U/L (0-35); AST (SGOT) 35 U/L (14-36); Albumin 3.8 g/dl (3.5-5.0); Alkaline Phosphatase 74 U/L (38-126); Blood Urea Nitrogen 11 mg/dl (7-17); Calcium 9.5 mg/dl (8.4-10.2); Carbon Dioxide 28 mmol/L (22-30); Chloride 104 mmol/L (98-107); Estimated Creatinine Clearance 84 ml/min; Glucose 82 mg/dl (70-99); Potassium 3.6 mmol/L (3.5-5.1); Sodium 138 mmol/L (135-145); Total Bilirubin 0.4 mg/dl (0.2-1.3); Total Protein 6.6 g/dl (6.3-8.2); eGFR > 60.00
[2024-07-07 10:51] VITALS: BP 106/79
--- NOTE | 2024-07-07 12:30 | CS.PSYCHR ---
Consult Summary - Psychiatry
-
Patient is a 34 y/o female past medical history of hypothyroidism, GERD/gastritis, 2 past seizures, who presented following a seizure witnessed by family- described her as having rigid upper and lower extremities, and unresponsive for a long period
of time. EMS was called who noted patient to be post-ictal. Pt noted stating she drinks 3 shots of vodka with soda nightly, last drink the night prior to admission. Pt denied hx of alcohol withdrawal. Lab studies revealed low: Potassium, Calcium,
glucose, Magnesium, Protein/Albumin, Folate; elevated: GGT, MCV, AST/ALT, TSH (with low T4). Alcohol level on admission 146. Pt admitted, placed on Keppra by Neurology, restarted on Synthroid. Pt placed on MSAS protocol, but did not have
significant withdrawal signs or require Ativan. Pt started on Ativan 0.5 mg prn for anxiety on 07/04/24, has been taking it 5 times a day for the past 3 days. Pt seen initially asleep, woke up after several attempts to wake her verbally. Pt states
Ativan is helping her and she is worried about being abruptly taken off at discharge. Pt states she was recently in [facility] D&A program due to probation, but not in any current treatment. She reports hx of depression and anxiety, states
Gabapentin and Wellbutrin worked for her. Pt states she is not interested in drug/alcohol rehab.
Psych Hx: depression, anxiety. Past Rx Prozac, [place], Zoloft, Seroquel, Gabapentin and Wellbutrin per pt, none recently. Last outpatient treatment at [facility]
PMH: as above; pt reported a prior seizure approx age 16 when still in high school, and a second seizure about 15 years ago
MSE: initially soundly asleep, woke after several attempts and was calm, cooperative, oriented. Speech coherent, thought goal-directed. No agitation, no signs of psychosis. Mood stable, affect mildly dysphoric/appropriate. Insight limited
Imp: Alcohol Use d/o, severe; hx of opioid use d/o
Unspecified anxiety, depression
Rec: Would decrease Ativan prior to discharge, then give a tapering-off prescription upon discharge. Pt accepted the recommendation that Ativan should only be temporary/short-term due to her history/conditions until she can connect with treatment.
Pt indicated she will try to find a provider that will give her Ativan as an outpatient, although it is not recommended
Outpatient mental health and addictions treatment when medically cleared
Psychiatry will sign off
--- NOTE | 2024-07-07 13:39 | CM ---
Patient stable for d/c today. Psych rec OP therapy, patient not interested in D&A rehab.
No CM needs identified at this time
Plan: Home, no needs.
--- NOTE | 2024-07-07 15:47 | W.PN.HOSP.TC ---
Today's Communication/Plan
-
DC
Assessment / Plan
Assessment / Plan
Seizure untreated seizure disorder vs hypoglycemia vs electrolyte disturbances
Neurology recommendations noted-started on Keppra by neurology advises to continue that and follow-up with neurology as outpatient.
MRI brain without acute CVA
-Continue seizure precautions; reports remote history of seizure
Reported DMV per neurology recommendation, patient aware
Also on alcohol withdrawal, MSAS-no signs
Severe Electrolyte Abnormalities (Hypokalemia, Hypomagnesemia, Hypocalcemia), secondary to Alcohol Use
-Replace potassium, magnesium and calcium as needed
Elevated PTH, patient to follow-up with PCP outpatient
has severe GERD too. restarted carafate.changed to suspension. PPI
Elevated LFTs
US without acute biliary abnormality. Fatty infiltration of the liver. Nephrolithiasis. No evidence of pelvicalyceal dilation
Monitor-much improved
GERD / Gastritis
-Continue Protonix
Still with abdominal pain, check CT abdomen/pelvis with p.o. contrast also not optimal study since patient could not tolerate enteric contrast. Discussed with GI. Symptoms could also be secondary to constipation. Status post mag citrate with
multiple BMs. abdomen X-ray 07/02 without any obstruction.
monitor symptoms; if able to tolerate diet and symptoms improving then likely dc tomorrow
Repeat CT with oral contrast showed Suggestion of some thickening of the wall of the segment of the distal ileum proximal to the terminal ileum as well as possible thickening of the wall of portions of the unopacified right colon questionably also
involving the sigmoid colon. Findings at least raise concern for inflammatory process such as Inflammatory Bowel Disease or other inflammatory/infectious process. GI recommended outpatient colonoscopy +/- MR enterography for further eval of
abnormal CT
Still with persistent nausea and abdominal discomfort. GI reconsulted. BRAT diet. Abdominal pain per GI appears multifactorial. Colonoscopy outpatient.
Tolerating diet. Thinks Carafate is helping.
Generalized anxiety/depression disorder. Patient says she was having longstanding mood dysfunction and was on medication before and nothing now. She requests Ativan for anxiety and treatments of her anxiety. Appt pschiatry eval - recommend benzo
in short term and taper as OP. Need sot follow with psychiatry as OP for treatments.
Alcohol use with dependance
No signs of alcohol withdrawal syndrome. Patient not keen on any rehab programs for alcohol use disorder.
hyperkalemia
Resolved
Low folic acid
Replete
Thrombocytopenia likely secondary to alcohol
Monitor
Hypoglycemia
-resolved
- Suspect sec to oral intake issues on admission.Now tolerating diet and no hypo
Hypothyroidism
-TSH 81.70
Discussed with patient again, now she is reporting that she might of missed few doses before
-Continue levothyroxine
-Recommend repeat testing as outpatient in 4-6 weeks
Macrocytic Anemia and Thrombocytopenia, likely related to Alcohol
-Monitor counts
suspect anxiety component
see above
Alcohol Use Disorder
-Continue thiamine and folic acid
no signs of withdrawal now
DVT proph: SCDs
Code Status: Full Code
Medically stable for DC
Total time of dc 32 min
Anticipated Discharge: Today
Subjective/Interval History
-
Date of Service: July 07, 2024
No further seizures.
Tolerating diet without much of upper GI symptoms.
Does not have a prescription for sucralfate or Protonix.
Seen by psychiatrist who recommends taper of benzos.
Objective Data
-
Labs:
Laboratory Results
07/07/24
07:35
WBC 4.2 L
Hgb 10.0 L
Hct 28.5 L
Plt Count 255
Sodium 138
Potassium 3.6
Chloride 104
Carbon Dioxide 28
BUN 11
Creatinine 0.7
Glucose 82
Calcium 9.5
Total Bilirubin 0.4
AST 35
ALT 18
Alkaline Phosphatase 74
Vital Signs:
Vital Signs
Temp Pulse Resp BP Pulse Ox
98.4 F 88 16 106/79 98
07/07/24 10:51 07/07/24 10:51 07/07/24 10:51 07/07/24 10:51 07/07/24 10:51
I&O
07/06/24 07/07/24 07/08/24
06:59 06:59 06:59
Intake Total 840 / 840
Balance 840 / 840
Review of Systems
-
Constitutional: Denies Fever
Respiratory: Denies Trouble Breathing
Cardiac: Denies Chest Pain
Abdomen/GI: Denies Abdominal Pain, Nausea, Vomiting or Diarrhea
Neuro: Denies Dizzy
Physical Exam
-
General: Comfortable
Respiratory: Non Labored Respirations; Negative Accessory Resp Muscle Use
GI: Soft, Nontender, Nondistended and Normal Bowel Sounds
Neuro: AO x 3; Negative Tremors
Psych: Calm; Negative Confused or Agitated
Data Reviewed
-
Labs: Labs Reviewed by me
== END 2024-07-07 14:16 | disposition home or self-care (01) | DRG 897 ==
LOC: 4 WEST ACU 17:30
PROVIDERS: Internal Medicine; Nurse Practitioner; Physician Assistant Medical; ADMITTING PHYSICIAN Hospitalist; ATTENDING PHYSICIAN Internal Medicine; CONSULT PHYSICIAN Internal Medicine Gastroenterology; EMERGENCY PHYSICIAN Emergency Medicine; FAMILY PHYSICIAN Family Medicine; OTHER PHYSICIAN Psychiatry & Neurology Neurology; OTHER PHYSICIAN Psychiatry & Neurology Psychiatry
DX: F10.239 Alcohol dependence with withdrawal, unspecified (principal); D61.818 Other pancytopenia; G40.909 Epilepsy, unspecified, not intractable, without status epilepticus; E83.51 Hypocalcemia; E87.6 Hypokalemia; E83.42 Hypomagnesemia; E16.2 Hypoglycemia, unspecified; E03.9 Hypothyroidism, unspecified; D53.9 Nutritional anemia, unspecified; D69.59 Other secondary thrombocytopenia; K21.9 Gastro-esophageal reflux disease without esophagitis; K29.70 Gastritis, unspecified, without bleeding; E87.5 Hyperkalemia; F41.9 Anxiety disorder, unspecified; E53.8 Deficiency of other specified B group vitamins; F17.290 Nicotine dependence, other tobacco product, uncomplicated; K52.9 Noninfective gastroenteritis and colitis, unspecified; K59.09 Other constipation; N20.0 Calculus of kidney; Z79.899 Other long term (current) drug therapy
CPT/HCPCS: 70450; 70486; 70551; 74022; 74176; 74177; 76700; 80048; 80053; 80306; 82077; 82550; 82553; 82607; 82728; 82746; 82962; 82977; 83540; 83550; 83690; 83735; 83970; 83993; 84100; 84439; 84443; 84466; 84484; 84703; 85025; 85027; 85610; 85730; 93005; 95816; 96365; 96366; 96375; 99291; Q9967

== ENCOUNTER 2024-07-28 16:10 | Emergency (ER) | payer OTHER, SELFPAY ==
[2024-07-28 16:17] VITALS: BP 128/92
[2024-07-28 16:40] LABS: % Basophils 1.2 % (0-2); % Eosinophils 0.6 % (0-6); % Immature Granulocytes 0.2 % (0-0.5); % Lymphocytes 16.6 % (20.5-51.1); % Monocytes 8.1 % (1.7-9.3); % Neutrophils 73.3 % (42.2-75.2); Absolute Basophils 0.1 10^3/uL (0-0.2); Absolute Lymphocytes 0.8 10^3/uL (1.2-3.4); Absolute Monocytes 0.4 10^3/uL (0.1-0.6); Absolute Neutrophils 3.6 10^3/uL (1.4-6.5); Hemoglobin 11.9 g/dL (12.0-16.0); Mean Corpuscular Hgb 33.8 pg (27.0-31.0); Mean Corpuscular Volume 99.4 fL (81.0-99.0); Mean Platelet Volume 8.5 fL (7.4-10.4); Nucleated Red Blood Cells % 0 %; Platelet Count 254 10^3/uL (130-400); Red Blood Cell Count 3.52 10^6/uL (4.20-5.40); Red Cell Dist. Width 13.2 % (11.5-14.5)
[2024-07-28 16:48] LABS: HCG, Serum Qualitative Screen Negative
[2024-07-28 16:50] VITALS: BP 128/93
[2024-07-28 16:53] LABS: ALT (SGPT) 19 U/L (0-35); AST (SGOT) 41 U/L (14-36); Albumin 4.9 g/dl (3.5-5.0); Alkaline Phosphatase 97 U/L (38-126); Blood Urea Nitrogen 5 mg/dl (7-17); Calcium 9.4 mg/dl (8.4-10.2); Carbon Dioxide 26 mmol/L (22-30); Chloride 107 mmol/L (98-107); Glucose 113 mg/dl (70-99); Lipase 197 U/L (23-300); Potassium 3.7 mmol/L (3.5-5.1); Sodium 142 mmol/L (135-145); Total Bilirubin 1.4 mg/dl (0.2-1.3); Total Protein 8.3 g/dl (6.3-8.2); eGFR > 60.00
[2024-07-28 17:00] VITALS: BP 126/97
[2024-07-28 17:10] LABS: Troponin I < 0.012 ng/ml
--- NOTE | 2024-07-28 17:57 | ED.GENMED ---
History of Present Illness
General
Chief Complaint: Chest Pain
Source: patient
Exam Limitations: none
Time Seen by Provider: 07/28/24 17:47
History of Present Illness
History of Present Illness:
34-year-old female presents with upper abdominal pain that radiates into the chest with associated nausea vomiting and loose stool. She was here a couple weeks ago for seizures in the setting of significant electrolyte abnormality and alcohol use
disorder. She has not had a seizure since admission. She admits to continued use of alcohol. Last alcoholic beverage was last evening. She states she feels shaky. The pain does not radiate to the back. No shortness of breath. No other
complaints at this time
Past History
Past History
ED Past Medical History: GERD and Seizures
ED Past Surgical History: None
Social History
Tobacco: Vaping
Alcohol: Daily
Drug: None
Personal: Partner
Living: with family
Phy Exam
Physical Exam
Physical Exam:
General: Anxious appearing female no acute respiratory distress
HEENT: Normocephalic atraumatic
Heart: Slightly tachycardic but regular
Lungs: Clear no wheeze
Abdomen soft mild diffuse tenderness no guarding rebound normal bowel sounds
Extremities: No cyanosis
Neurologic: Slight tremor noted
Scores
Heart Score for Chest Pain Patients
STEMI patient?: No
History: Slightly or Non-Suspicious
ECG: Normal
Age: </= 45 years
Risk Factors: No Risk Factors
Troponin: </= Normal Limit
Heart Score for Chest Pain Patients: 0
Heart Score Risk: 2.5% MACE over next 6 weeks
Course
Orders/Labs/Results
Orders:
Orders
07/28/24 16:11
EKG [Electrocardiogram (*1)] Urgent
Reason for Study: Chest Pain
EKG- Treatment ONCE
07/28/24 16:19
Test Result ONCE
07/28/24 16:26
Complete Blood Count/With Diff Urgent
Comprehensive Metabolic Panel Urgent
HCG, Serum Qualitative Screen Urgent
Lipase Urgent
Troponin I Urgent
07/28/24 17:55
0.9% Sodium Chloride 1000 ml [Nss] 1,000 ml IV BOLUS
Famotidine [Pepcid] 20 mg IV NOW STA
Ondansetron Injectable [Zofran] 4 mg IV NOW STA
07/28/24 18:46
Mag Hydrox/Al Hydrox/Simeth [Maalox] 30 ml Phenobarb/Hyoscy/Atropine/Scop [] 10 ml Viscous Lidocaine 2% [Xylocaine Viscous Cup] 10 ml PO NOW
07/28/24 18:48
Mag Hydrox/Al Hydrox/Simeth [Maalox] 30 ml .ROUTE .STK-MED ONE
Phenobarb/Hyoscy/Atropine/Scop [] 10 ml .ROUTE .STK-MED ONE
07/28/24 18:49
Viscous Lidocaine 2% [Xylocaine Viscous Cup] 15 ml .ROUTE .STK-MED ONE
Abnormal Lab Results
07/28/24
16:26
RBC 3.52 L 10^6/uL
(4.20-5.40)
Hgb 11.9 L g/dL
(12.0-16.0)
Hct 35.0 L %
(37.0-47.0)
MCV 99.4 H fL
(81.0-99.0)
MCH 33.8 H pg
(27.0-31.0)
Absolute Lymphs (auto) 0.8 L 10^3/uL
(1.2-3.4)
Lymphocytes % 16.6 L %
(20.5-51.1)
BUN 5 L mg/dl
(7-17)
Glucose 113 H mg/dl
(70-99)
Total Bilirubin 1.4 H mg/dl
(0.2-1.3)
AST 41 H U/L
(14-36)
Total Protein 8.3 H g/dl
(6.3-8.2)
07/28/24 16:26
07/28/24 16:26
Vital Signs
Initial and Last Documented VS:
Initial Vital Signs
Temp Pulse Resp BP Pulse Ox
98.6 F 104 16 128/92 99
07/28/24 16:17 07/28/24 16:17 07/28/24 16:17 07/28/24 16:17 07/28/24 16:17
Last Documented Vital Signs
Temp Pulse Resp BP Pulse Ox
98.6 F 77 19 121/100 98
07/28/24 16:17 07/28/24 21:30 07/28/24 21:30 07/28/24 21:00 07/28/24 21:30
MDM/Problems Addressed
Differential Diagnosis Includes:
Abdominal pain nausea vomiting diarrhea. Question gastritis versus alcohol withdrawal. She is slightly tachycardic but blood pressure is normal. Also consider viral illness. Electrolyte abnormalities have since resolved from recent admission.
Will hydrate give Zofran and Pepcid. If need be consider Ativan
*Critical Care Note
Total Time (30-74mins, 75-104mins- exclusive of procedures): Not Applicable
Update Note
Update Note:
Heart rate has improved abdominal symptoms improved after treatment here. She received Zofran Pepcid and subsequently GI cocktail. I suspect underlying gastritis. Electrolytes are normal. Counseling was had to avoid alcohol. Will prescribe
Protonix in the for discharge
ED Attending Note
-
Portions of this chart may have been created with voice recognition software.� Occasional wrong word or��sound alike� substitutions may have occurred due to the inherent limitations of voice recognition software.
Discharge Plan
Departure
Patient Disposition: Home (Routine Discharge)
Date of Disposition: 07/28/24
Time of Disposition: 21:46
Patient with high blood pressure during this ER visit?: No
Discharge Problem:
Abdominal pain
Instructions: Acid Reflux and GERD in Adults (DC)
Prescriptions:
New
pantoprazole [Protonix] 40 mg tablet,delayed release (DR/EC)
40 mg PO DAILY Qty: 14 0RF
ondansetron 4 mg tablet,disintegrating
4 mg PO Q8H PRN (Reason: nausea and vomiting) Qty: 10 0RF
No Action
Tums Extra Strength Smoothies 300 mg (750 mg) Tablet,Chewable
300 mg PO DAILYPRN PRN (Reason: upset stomach)
levothyroxine 75 mcg tablet
75 mcg PO DAILY
levetiracetam 500 mg Tablet
500 mg PO BID Qty: 60 0RF
folic acid 1 mg Tablet
1 mg PO DAILY Qty: 30 0RF
thiamine mononitrate (vit B1) 100 mg Tablet
100 mg PO DAILY Qty: 30 0RF
lorazepam [Ativan] 0.5 mg tablet
0.5 mg PO TID Qty: 18 0RF
Rx Instructions:
Three time a day for 3 days and
twice a day for 3 days and
once a day for 3 days and stop
sucralfate 1 gram Tablet
1 g PO ACHS Qty: 52 0RF
pantoprazole 40 mg tablet,delayed release (DR/EC)
40 mg PO BID Qty: 60 0RF
Referrals:
UNKNOWN - PT DOES,NOT KNOW [Family Provider]
Activity Restrictions/Additional Instructions:
Avoid alcohol. Eat a bland diet. Drink plenty of clear liquids. Use Protonix as directed. Use Zofran if needed. Follow-up with your doctor
Interventions
Interventions:
*Risk Screen - Suicide Last Done: 07/28/24 16:18
*Neglect/Abuse Screening Last Done: 07/28/24 16:18
ED- Cardiac Assessment Last Done: 07/28/24 17:00
Discharge Date and Time
Print Language: MAURITIAN
[2024-07-28] MEDS: ZOFRAN 4 MG IV (18:00)
[2024-07-28] MEDS: PEPCID 20 MG IV (18:00)
[2024-07-28] MEDS: NSS 1000 IV (18:05)
[2024-07-28] MEDS: MAALOX 50 PO (18:50)
[2024-07-28 20:00] VITALS: BP 116/91
[2024-07-28 21:00] VITALS: BP 121/100
[2024-07-28 21:51] VITALS: BP 131/97
== END 2024-07-28 21:55 | disposition home or self-care (01) ==
LOC: EMR 16:10
PROVIDERS: EMERGENCY PHYSICIAN Emergency Medicine
DX: R10.10 Upper abdominal pain, unspecified (principal); R07.89 Other chest pain; R11.2 Nausea with vomiting, unspecified; F17.290 Nicotine dependence, other tobacco product, uncomplicated
CPT/HCPCS: 96374; 96375; 96361; 99284; 80053; 83690; 84484; 84703; 85025; 93005

== ENCOUNTER 2024-08-22 20:58 | Emergency (ER) | payer OTHER, SELFPAY ==
[2024-08-22 20:59] VITALS: BP 112/89
[2024-08-22 21:03] LABS: Glucose - Point of Care 105 mg/dl (70-99)
[2024-08-22 21:08] VITALS: BMI 22.5
--- NOTE | 2024-08-22 21:11 | ED.GENMED ---
History of Present Illness
<Ernesto Mcdonald DO - Last Filed: 08/25/24 08:31>
General
Chief Complaint: Alcohol Problem
Source: patient
Time Seen by Provider: 08/22/24 21:03
History of Present Illness
History of Present Illness:
34-year-old female brought to the emergency by ambulance after being found unresponsive in the home she is residing. Patient mitts to doing some shots earlier. She remembers taking a hit over her vape and then laying down to rest. Next thing
remembers is being brought here to the emergency room. Patient denies any recreational drug use. She does have a history of seizures but has not had a seizure in some time and does not feel the way she typically does after having a seizure.
Patient really has no complaints.
Past History
<Ernesto Mcdonald DO - Last Filed: 08/25/24 08:31>
Past History
ED Past Medical History: GERD and Seizures
ED Past Surgical History: None
Social History
Tobacco: Vaping
Alcohol: Daily
Drug: None
Personal: Partner
Living: with family
Phy Exam
<Ernesto Mcdonald DO - Last Filed: 08/25/24 08:31>
Physical Exam
Physical Exam:
General: Awake, Alert, Oriented X3. No acute distress.
Vitals: unremarkable
Head: Atraumatic
Eyes: Pupils equal, EOMI
Throat: Airway intact, no exudates
Neck: Trachea midline
Lungs: Clear and equal b/l
Heart: Regular rate, no murmurs
Abd: Soft, Nontender, No pulsatile mass
Neuro: Nonfocal
Skin: Warm, dry, no rash
Extremities: pulses equal b/l, no edema
Scores
<Ernesto Mcdonald DO - Last Filed: 08/25/24 08:31>
Withdrawal Assessment of Alcohol
Total CIWA Score: 1
Alcohol Withdrawal Medication Recommendation: Equal to MSAS Score 0-4. Monitor & re-assess q2hrs, NO MEDICATION NEEDED
<Lisset Rodriguez, DO - Last Filed: 08/23/24 06:39>
Withdrawal Assessment of Alcohol
Withdrawal Assessment Completed?: Yes
Nausea and Vomiting: Mild nausea with no vomiting
Tactile Disturbances: None
Tremor: No tremor
Auditory Disturbances: Not present
Paroxysmal Sweats: No sweat visible
Visual Disturbances: Not present
Anxiety: No anxiety, at ease
Headache, Fullness in Head: Not present
Agitation: Normal activity
Orientation and clouding of sensorium: Oriented and can do serial additions
Total CIWA Score: 1
Alcohol Withdrawal Medication Recommendation: Equal to MSAS Score 0-4. Monitor & re-assess q2hrs, NO MEDICATION NEEDED
Course
Lawand[place];Ernesto Mcdonald, DO - Last Filed: 08/25/24 08:31>
Orders/Labs/Results
Orders:
Orders
08/22/24 21:07
EKG [Electrocardiogram (*1)] Urgent
Reason for Study: Other
Other Reason for Exam: unresponsive episode
EKG- Treatment ONCE
08/22/24 21:08
0.9% Sodium Chloride 500 ml [Nss] 500 ml IV BOLUS
Test Result ONCE
08/22/24 21:10
Alcohol Urgent
Basic Metabolic Panel Urgent
Complete Blood Count/With Diff Urgent
HCG, Serum Qualitative Screen Urgent
08/22/24 22:49
Potassium Chloride [KCl] 40 meq PO NOW STA
08/22/24 23:00
Dextrose 5%/0.9%Sodchl 1000 ml [D5/0.9% Sodium Chloride] 1,000 ml Potassium Chloride [KCl] 20 meq Magnesium Sulfate 2 grams Thiamine Injection 200 mg FOLic ACID [Folvite] 1 mg IV 250 mls/hr
Abnormal Lab Results
08/22/24 08/22/24
21:02 21:10
RBC 3.35 L 10^6/uL
(4.20-5.40)
Hgb 11.2 L g/dL
(12.0-16.0)
Hct 32.9 L %
(37.0-47.0)
MCH 33.4 H pg
(27.0-31.0)
Sodium 152 H mmol/L
(135-145)
Potassium 3.3 L mmol/L
(3.5-5.1)
Chloride 113 H mmol/L
(98-107)
Carbon Dioxide 32 H mmol/L
(22-30)
Calcium 8.2 L mg/dl
(8.4-10.2)
Alcohol, Quantitative 409 H* mg/dl
POC Glucose 105 H mg/dl
(70-99)
08/22/24 21:10
08/22/24 21:10
Vital Signs
Initial and Last Documented VS:
Initial Vital Signs
Pulse Resp BP Pulse Ox
96 18 112/89 91
08/22/24 20:59 08/22/24 20:59 08/22/24 20:59 08/22/24 20:59
Last Documented Vital Signs
Pulse Resp BP Pulse Ox
70 16 92/70 96
08/23/24 04:45 08/23/24 04:45 08/23/24 04:00 08/23/24 04:45
<Lisset Rodriguez DO - Last Filed: 08/23/24 06:39>
Orders/Labs/Results
Orders:
Orders
08/22/24 21:07
EKG [Electrocardiogram (*1)] Urgent
Reason for Study: Other
Other Reason for Exam: unresponsive episode
EKG- Treatment ONCE
08/22/24 21:08
0.9% Sodium Chloride 500 ml [Nss] 500 ml IV BOLUS
Test Result ONCE
08/22/24 21:10
Alcohol Urgent
Basic Metabolic Panel Urgent
Complete Blood Count/With Diff Urgent
HCG, Serum Qualitative Screen Urgent
08/22/24 22:49
Potassium Chloride [KCl] 40 meq PO NOW STA
08/22/24 23:00
Dextrose 5%/0.9%Sodchl 1000 ml [D5/0.9% Sodium Chloride] 1,000 ml Potassium Chloride [KCl] 20 meq Magnesium Sulfate 2 grams Thiamine Injection 200 mg FOLic ACID [Folvite] 1 mg IV 250 mls/hr
Abnormal Lab Results
08/22/24 08/22/24
21:02 21:10
RBC 3.35 L 10^6/uL
(4.20-5.40)
Hgb 11.2 L g/dL
(12.0-16.0)
Hct 32.9 L %
(37.0-47.0)
MCH 33.4 H pg
(27.0-31.0)
Sodium 152 H mmol/L
(135-145)
Potassium 3.3 L mmol/L
(3.5-5.1)
Chloride 113 H mmol/L
(98-107)
Carbon Dioxide 32 H mmol/L
(22-30)
Calcium 8.2 L mg/dl
(8.4-10.2)
Alcohol, Quantitative 409 H* mg/dl
POC Glucose 105 H mg/dl
(70-99)
08/22/24 21:10
08/22/24 21:10
Vital Signs
Initial and Last Documented VS:
Initial Vital Signs
Pulse Resp BP Pulse Ox
96 18 112/89 91
08/22/24 20:59 08/22/24 20:59 08/22/24 20:59 08/22/24 20:59
Last Documented Vital Signs
Pulse Resp BP Pulse Ox
70 16 92/70 96
08/23/24 04:45 08/23/24 04:45 08/23/24 04:00 08/23/24 04:45
<Ernesto Mcdonald, DO - Last Filed: 08/25/24 08:31>
MDM/Problems Addressed
Differential Diagnosis Includes:
Alcohol intoxication, postictal state,
MDM/Problems Addressed:
Patient presents intoxicated. She is responsive to stimulus. Patient mitts to taking several shots of 'airplane bottles'. Slowly improving. Signed out to illustrator set Dr. Rodriguez
<Ernesto Mcdonald, DO - Last Filed: 08/25/24 08:31>
*Pulse Oximetry
SaO2: 91
Oxygen Mode of Delivery: Room air
*EKG
Interpreted by ED Provider?: Yes
Heart Rate: 91
Rate: normal
Rhythm: sinus
[place]: normal axis
Interval: normal interval
QRS Pattern: normal QRS
Ischemia: non-specific ST changes
*[employer] Supervisor Interpretation
Rate: normal
Interpretation: normal
Heart Rate: 91
Rhythm: sinus
<Lisset Rodriguez, DO - Last Filed: 08/23/24 06:39>
*Pulse Oximetry
Patient hypoxic: no
*Critical Care Note
Total Time (30-74mins, 75-104mins- exclusive of procedures): Not Applicable
<Lisset Rodriguez DO - Last Filed: 08/23/24 06:39>
Update Note
Update Note:
05:20
Patient is awake and alert. She is ambulated to and from the bathroom with steady unaided gait.
No evidence of alcohol withdrawal on exam.
She declines inpatient rehab. She does not believe she has a drinking problem.
She and her daughter currently reside in a homeless [facility].
She has contacted her boyfriend to pick her up.
Patient has been provided with information for [facility]-out patient rehab services.
ED Attending Note
<Ernesto Mcdonald, DO - Last Filed: 08/25/24 08:31>
-
Portions of this chart may have been created with voice recognition software.� Occasional wrong word or��sound alike� substitutions may have occurred due to the inherent limitations of voice recognition software.
Discharge Plan
Departure
Patient Disposition: Home (Routine Discharge)
Date of Disposition: 08/23/24
Time of Disposition: 05:17
Patient with high blood pressure during this ER visit?: No
Discharge Problem:
Acute hypokalemia, Alcohol intoxication
Instructions: Alcohol Use Disorder (DC)
Prescriptions:
No Action
Tums Extra Strength Smoothies 300 mg (750 mg) Tablet,Chewable
300 mg PO DAILYPRN PRN (Reason: upset stomach)
levothyroxine 75 mcg tablet
75 mcg PO DAILY
levetiracetam 500 mg Tablet
500 mg PO BID Qty: 60 0RF
folic acid 1 mg Tablet
1 mg PO DAILY Qty: 30 0RF
thiamine mononitrate (vit B1) 100 mg Tablet
100 mg PO DAILY Qty: 30 0RF
lorazepam [Ativan] 0.5 mg tablet
0.5 mg PO TID Qty: 18 0RF
Rx Instructions:
Three time a day for 3 days and
twice a day for 3 days and
once a day for 3 days and stop
sucralfate 1 gram Tablet
1 g PO ACHS Qty: 52 0RF
pantoprazole 40 mg tablet,delayed release (DR/EC)
40 mg PO BID Qty: 60 0RF
pantoprazole [Protonix] 40 mg tablet,delayed release (DR/EC)
40 mg PO DAILY Qty: 14 0RF
ondansetron 4 mg tablet,disintegrating
4 mg PO Q8H PRN (Reason: nausea and vomiting) Qty: 10 0RF
Referrals:
UNKNOWN - PT DOES,NOT KNOW [Family Provider]
Interventions
Interventions:
*Risk Screen - Suicide Last Done: 08/22/24 20:59
*General Assessment Last Done: 08/22/24 20:59
*Neglect/Abuse Screening Last Done: 08/22/24 20:59
*ED- Fall Risk Assessment Last Done: 08/22/24 20:59
*ED COVID-19 Vaccine History Last Done: 08/22/24 20:59
*Nursing Disposition Last Done: 08/23/24 05:32
ED- Neurological Assessment Last Done: 08/22/24 21:18
ED-Psychological Assessment Last Done: 08/22/24 21:18
Discharge Date and Time
Discharge Date/Time: 08/23/24 05:33
Print Language: KOSOVAN
[2024-08-22] MEDS: NSS 500 IV (21:13)
[2024-08-22 21:19] LABS: % Eosinophils 3.1 % (0-6); % Immature Granulocytes 0.2 % (0-0.5); % Lymphocytes 32.2 % (20.5-51.1); % Monocytes 8.5 % (1.7-9.3); Absolute Basophils 0.1 10^3/uL (0-0.2); Absolute Eosinophils 0.2 10^3/uL (0-0.7); Absolute Lymphocytes 1.6 10^3/uL (1.2-3.4); Absolute Monocytes 0.4 10^3/uL (0.1-0.6); Absolute Neutrophils 2.7 10^3/uL (1.4-6.5); Hematocrit 32.9 % (37.0-47.0); Hemoglobin 11.2 g/dL (12.0-16.0); Mean Corpuscular Hgb 33.4 pg (27.0-31.0); Mean Corpuscular Volume 98.2 fL (81.0-99.0); Mean Platelet Volume 8.2 fL (7.4-10.4); Nucleated Red Blood Cells % 0 %; Platelet Count 147 10^3/uL (130-400); Red Blood Cell Count 3.35 10^6/uL (4.20-5.40); Red Cell Dist. Width 14.2 % (11.5-14.5); White Blood Cell Count 4.9 10^3/uL (4.8-10.8)
[2024-08-22 21:37] LABS: HCG, Serum Qualitative Screen Negative
[2024-08-22 21:40] LABS: Blood Urea Nitrogen 13 mg/dl (7-17); Calcium 8.2 mg/dl (8.4-10.2); Carbon Dioxide 32 mmol/L (22-30); Chloride 113 mmol/L (98-107); Estimated Creatinine Clearance 84 ml/min; Glucose 99 mg/dl (70-99); Potassium 3.3 mmol/L (3.5-5.1); Sodium 152 mmol/L (135-145); eGFR > 60.00
[2024-08-22 21:53] LABS: Alcohol 409 mg/dl
[2024-08-22 23:04] VITALS: BP 113/87
[2024-08-23] VITALS: BP 102/78
[2024-08-23] MEDS: KCL 1016.2 MG IV ×2 (00:01)
[2024-08-23] MEDS: KCL 1016.2 MEQ IV (00:01)
[2024-08-23] MEDS: KCL 1016.2 GRAMS IV (00:01)
[2024-08-23 01:00] VITALS: BP 92/70
[2024-08-23 02:00] VITALS: BP 91/68
[2024-08-23 03:00] VITALS: BP 87/67
[2024-08-23 04:00] VITALS: BP 92/70
== END 2024-08-23 05:33 | disposition home or self-care (01) ==
LOC: EMR 20:58
PROVIDERS: Emergency Medicine; EMERGENCY PHYSICIAN Emergency Medicine
DX: E87.6 Hypokalemia (principal); F10.129 Alcohol abuse with intoxication, unspecified; F17.290 Nicotine dependence, other tobacco product, uncomplicated
CPT/HCPCS: 99284; 96365; 96366 ×3; 80048; 82077; 82962; 84703; 85025; 93005

== ENCOUNTER 2024-09-08 04:23 | Emergency (ER) | payer OTHER, SELFPAY ==
[2024-09-08] VITALS (10 sets, daily range): BP systolic 94–129; BP diastolic 65–89; BMI 21.3
--- NOTE | 2024-09-08 04:56 | ED.GENMED ---
History of Present Illness
<Lisset Rodriguez DO - Last Filed: 09/08/24 07:03>
General
Chief Complaint: Abdominal Symptoms
Source: patient, spouse (Boyfriend who is at bedside and as brought the patient to the ED.) and previous hospital records (Hospitalization June of this year after patient suffered a seizure thought to be related to severe electrolyte abnormality.
Alcohol abuse.)
Exam Limitations: clinical condition
Time Seen by Provider: 09/08/24 04:42
Nursing documentation reviewed up to this point in time: agreed with
History of Present Illness
History of Present Illness:
This is a 34-year-old woman with history of hypothyroidism, GERD/gastritis as well as history of alcohol abuse. Hospitalized here June of this year after suffering a seizure that was thought to be related to severe electrolyte abnormality.
Questionable history of seizure disorder reporting having a seizure in high school and then a second seizure 15 years ago after the of her oldest child. No prior episodes of alcohol withdrawal seizures.
She was offered inpatient treatment for alcohol abuse which she declined.
ED visit 2 weeks ago after being found unresponsive. Alcohol level 400 during that visit. No reported seizure and no seizure during ED visit.
She again declined assistance for alcohol abuse and was discharged to home.
She is brought to the ED tonight by her boyfriend after he found her unresponsive outside of the bathroom. She admits to drinking alcohol daily but both she and boyfriend states she has been 'cutting down'
She denies drug use.
She complains of upper abdominal pain, intermittent retching and vomiting over the past day or 2. She denies hematemesis. She has had a few loose stools. Denies hematochezia, denies black or tarry stools.
She denies risk of , last menstrual period 1 week ago.
No reported seizure activity and patient does not believe she has had a seizure recently.
Past History
<Lisset Rodriguez DO - Last Filed: 09/08/24 07:03>
Past History
ED Past Medical History: GERD (Gastritis), Seizures, Hypothyroidism and Other (Alcohol abuse)
Social History
Tobacco: Vaping
Alcohol: Daily
Drug: None
Personal: Partner
Living: with family
Employment: Not employed
Family History
Family History: Other (Noncontributory)
Phy Exam
<DO Mark Oreilly Last Filed: 09/08/24 07:03>
Physical Exam
Physical Exam:
GENERAL: 34-year-old female appears her stated age. Moderately drowsy, intermittently retching into an emesis basin. Significant other at bedside.
EYE: pupils equal and reactive. Extraocular muscles intact. Anicteric. The head is normocephalic, atraumatic.
NECK: Supple, nontender, no meningismus, no significant adenopathy.
ENT: posterior pharynx is clear, oral mucosa is minimally dry. TM clear b/l, nares patent.
CARDIAC: Regular rate and rhythm. no murmur.
LUNGS: Clear breath sounds bilaterally, no acute respiratory distress, no wheezes/rales/rhonchi
ABDOMEN: Soft, nondistended, mild to moderate tenderness epigastric region, no r/g, no cvat. normoactive BS.
NEUROLOGICAL: Awake, moderately drowsy, marginally cooperative, no focal neuro deficits.
SKIN: Warm and dry, normal color, skin intact. No rash. No evidence of contusions nor abrasions.
MUSCULOSKELETAL: No C/C/E. peripheral pulses are full and equal b/l. No palpable tenderness.
PSYCH: Drowsy. Marginally cooperative.
Scores
<DO Mark Oreilly Last Filed: 09/08/24 07:03>
Withdrawal Assessment of Alcohol
Withdrawal Assessment Completed?: Yes
Nausea and Vomiting: No nausea and no vomiting
Tactile Disturbances: None
Tremor: Moderate, with patient's arms extended
Auditory Disturbances: Not present
Paroxysmal Sweats: No sweat visible
Visual Disturbances: Not present
Anxiety: Mild anxiety
Headache, Fullness in Head: Not present
Agitation: Normal activity
Orientation and clouding of sensorium: Oriented and can do serial additions
Total CIWA Score: 5
Alcohol Withdrawal Medication Recommendation: Equal to MSAS Score 0-4. Monitor & re-assess q2hrs, NO MEDICATION NEEDED
<Roverto Orantes MD - Last Filed: 09/08/24 13:32>
Withdrawal Assessment of Alcohol
Total CIWA Score: 5
Alcohol Withdrawal Medication Recommendation: Equal to MSAS Score 0-4. Monitor & re-assess q2hrs, NO MEDICATION NEEDED
Course
<Lisset Rodriguez DO - Last Filed: 09/08/24 07:03>
Orders/Labs/Results
Orders:
Orders
09/08/24 04:45
Test Result ONCE
09/08/24 04:46
Electrocardiogram (*1) Urgent
Reason for Study: QTc Monitoring
EKG- Treatment ONCE
09/08/24 04:51
Bedside Glucose- Treatment ONCE
09/08/24 04:55
Alcohol Urgent
Complete Blood Count/With Diff Urgent
Comprehensive Metabolic Panel Urgent
HCG, Serum Qualitative Screen Urgent
Lipase Urgent
Comment: ADD ON
Magnesium Urgent
Phosphorus Urgent
Prothrombin Time Urgent
09/08/24 04:56
Pantoprazole [Protonix IV] 40 mg IV NOW STA
09/08/24 04:58
Metoclopramide [Reglan] 10 mg .ROUTE .STK-MED ONE
09/08/24 04:59
Metoclopramide [Reglan] 10 mg IV NOW STA
09/08/24 05:46
Fentanyl, Urine Urgent
Urinalysis Reflex To Culture Urgent
Date Specimen was Collected: 09/08/24
Time Specimen was Collected: 04:51
Urine Drug Abuse Screen Urgent
Date Specimen was Collected: 09/08/24
Time Specimen was Collected: 04:51
Urine Microscopic Reflex Cult Urgent
Urine Culture Urgent
DEBRA Source: U
Specimen Description:
Date Specimen was Collected: 09/08/24
Time Specimen was Collected: 04:51
09/08/24 06:00
Dextrose 5%/0.9%Sodchl 1000 ml [D5/0.9% Sodium Chloride] 1,000 ml Potassium Chloride [KCl] 20 meq Mvi, Adult [Multivitamin] 10 ml Magnesium Sulfate 2 grams Thiamine Injection 200 mg FOLic ACID [Folvite] 1 mg IV 500 mls/hr
09/08/24 06:04
Sucralfate Suspension [Carafate Suspension] 1 gm PO NOW STA
09/08/24 06:08
Add On- LAB Urgent
Tests Added?: lipase
09/08/24 06:43
Lorazepam [Ativan] 0.5 mg IV NOW STA
09/08/24 09:28
Lipase Urgent
09/08/24 11:39
CT Abd/pelvis W Iv Cont Urgent
Comment:
Reason For Exam: abdominal pain, vomiting, h/o pancreatitis
09/08/24 12:02
Lorazepam [Ativan] 0.5 mg IV NOW STA
Abnormal Lab Results
09/08/24 09/08/24 09/08/24
04:55 04:56 05:46
WBC 3.8 L 10^3/uL
(4.8-10.8)
RBC 3.97 L 10^6/uL
(4.20-5.40)
Hct 35.5 L %
(37.0-47.0)
MCH 31.7 H pg
(27.0-31.0)
PT 15.9 H Sec
(11.4-14.6)
Potassium 3.4 L mmol/L
(3.5-5.1)
Glucose 119 H mg/dl
(70-99)
AST 145 H U/L
(14-36)
ALT 46 H U/L
(0-35)
Ur Occult Blood Reflex 1+ A
(Negative)
Urine Nitrite (Reflex) Positive A
(Negative)
Leukocyte Esterase Rfl 1+ A
(Negative)
Urine WBC (Reflex) 26-30 A /HPF
(0-5)
Urine Bacteria (Reflex) Many A
(Negative)
Urine Albumin (Reflex) 1+ A
(Neg - Trace)
U Benzodiazepines Scrn Positive H
(Negative)
POC Glucose 116 H mg/dl
(70-99)
09/08/24 04:55
09/08/24 04:55
Vital Signs
Initial and Last Documented VS:
Initial Vital Signs
Temp Pulse Resp BP Pulse Ox
36.4 C 104 18 129/84 97
09/08/24 04:24 09/08/24 04:24 09/08/24 04:24 09/08/24 04:24 09/08/24 04:24
Last Documented Vital Signs
Temp Pulse Resp BP Pulse Ox
36.4 C 80 15 105/81 95
09/08/24 04:24 09/08/24 08:15 09/08/24 08:15 09/08/24 07:00 09/08/24 08:15
<Roverto Orantes MD - Last Filed: 09/08/24 13:32>
Orders/Labs/Results
Orders:
Orders
09/08/24 04:45
Test Result ONCE
09/08/24 04:46
Electrocardiogram (*1) Urgent
Reason for Study: QTc Monitoring
EKG- Treatment ONCE
09/08/24 04:51
Bedside Glucose- Treatment ONCE
09/08/24 04:55
Alcohol Urgent
Complete Blood Count/With Diff Urgent
Comprehensive Metabolic Panel Urgent
HCG, Serum Qualitative Screen Urgent
Lipase Urgent
Comment: ADD ON
Magnesium Urgent
Phosphorus Urgent
Prothrombin Time Urgent
09/08/24 04:56
Pantoprazole [Protonix IV] 40 mg IV NOW STA
09/08/24 04:58
Metoclopramide [Reglan] 10 mg .ROUTE .STK-MED ONE
09/08/24 04:59
Metoclopramide [Reglan] 10 mg IV NOW STA
09/08/24 05:46
Fentanyl, Urine Urgent
Urinalysis Reflex To Culture Urgent
Date Specimen was Collected: 09/08/24
Time Specimen was Collected: 04:51
Urine Drug Abuse Screen Urgent
Date Specimen was Collected: 09/08/24
Time Specimen was Collected: 04:51
Urine Microscopic Reflex Cult Urgent
Urine Culture Urgent
DEBRA Source: U
Specimen Description:
Date Specimen was Collected: 09/08/24
Time Specimen was Collected: 04:51
09/08/24 06:00
Dextrose 5%/0.9%Sodchl 1000 ml [D5/0.9% Sodium Chloride] 1,000 ml Potassium Chloride [KCl] 20 meq Mvi, Adult [Multivitamin] 10 ml Magnesium Sulfate 2 grams Thiamine Injection 200 mg FOLic ACID [Folvite] 1 mg IV 500 mls/hr
09/08/24 06:04
Sucralfate Suspension [Carafate Suspension] 1 gm PO NOW STA
09/08/24 06:08
Add On- LAB Urgent
Tests Added?: lipase
09/08/24 06:43
Lorazepam [Ativan] 0.5 mg IV NOW STA
09/08/24 09:28
Lipase Urgent
09/08/24 11:39
CT Abd/pelvis W Iv Cont Urgent
Comment:
Reason For Exam: abdominal pain, vomiting, h/o pancreatitis
09/08/24 12:02
Lorazepam [Ativan] 0.5 mg IV NOW STA
Abnormal Lab Results
09/08/24 09/08/24 09/08/24
04:55 04:56 05:46
WBC 3.8 L 10^3/uL
(4.8-10.8)
RBC 3.97 L 10^6/uL
(4.20-5.40)
Hct 35.5 L %
(37.0-47.0)
MCH 31.7 H pg
(27.0-31.0)
PT 15.9 H Sec
(11.4-14.6)
Potassium 3.4 L mmol/L
(3.5-5.1)
Glucose 119 H mg/dl
(70-99)
AST 145 H U/L
(14-36)
ALT 46 H U/L
(0-35)
Ur Occult Blood Reflex 1+ A
(Negative)
Urine Nitrite (Reflex) Positive A
(Negative)
Leukocyte Esterase Rfl 1+ A
(Negative)
Urine WBC (Reflex) 26-30 A /HPF
(0-5)
Urine Bacteria (Reflex) Many A
(Negative)
Urine Albumin (Reflex) 1+ A
(Neg - Trace)
U Benzodiazepines Scrn Positive H
(Negative)
POC Glucose 116 H mg/dl
(70-99)
09/08/24 04:55
09/08/24 04:55
Vital Signs
Initial and Last Documented VS:
Initial Vital Signs
Temp Pulse Resp BP Pulse Ox
36.4 C 104 18 129/84 97
09/08/24 04:24 09/08/24 04:24 09/08/24 04:24 09/08/24 04:24 09/08/24 04:24
Last Documented Vital Signs
Temp Pulse Resp BP Pulse Ox
36.4 C 80 15 105/81 95
09/08/24 04:24 09/08/24 08:15 09/08/24 08:15 09/08/24 07:00 09/08/24 08:15
<Lisset Rodriguez DO - Last Filed: 09/08/24 07:03>
MDM/Problems Addressed
Differential Diagnosis Includes:
Significant concern for alcohol intoxication, alcoholic gastritis, concern for postictal state, concern for electrolyte abnormality, dehydration, closed head injury.
Will check Accu-Chek. EKG. Initiate IV access, IV banana bag with D5 normal saline, potassium, magnesium, folic acid, multivitamins.
Will check labs including EtOH, UDS.
Will give IV Protonix for what I suspect is alcoholic gastritis and will give Reglan for nausea.
According to significant other, patient found lying outside of the bathroom but denies hearing a crash nor thud. No evidence of head trauma on exam but due to concern for alcohol intoxication, concern for occult head injury we will consider CT of
the head.
If abdominal pain, nausea or vomiting persist despite above measures will consider CT abdomen pelvis.
Chronic conditions affecting care: Neurological disorder (Prior history of seizures) and Psychiatric illness (Chronic alcohol abuse)
<Lisset Rodriguez, DO - Last Filed: 09/08/24 07:03>
*Pulse Oximetry
SaO2: 97
Oxygen Mode of Delivery: Room air
Patient hypoxic: no
*EKG
Interpreted by ED Provider?: Yes
Interpretation: normal
Comparison EKG: no changes (Unchanged from previous August 22, 2024)
Rate: normal
Rhythm: sinus
Scammon: normal axis
Interval: normal interval
QRS Pattern: normal QRS
Ischemia: no ischemia
*[employer] Interpretation
Rate: normal
Interpretation: normal
Rhythm: sinus
*Critical Care Note
Total Time (30-74mins, 75-104mins- exclusive of procedures): Not Applicable
<Lisset Rodriguez DO - Last Filed: 09/08/24 07:03>
Update Note
Update Note:
Patient is awake and alert. No further nausea after an IV dose of Reglan.
She denies headache, denies neck or back pain but continues with moderate epigastric pain.
She denies fall nor injury.
Labs are overall reassuring. Very mild hypokalemia at 3.4, mildly to moderately elevated LFTs likely related to alcohol use. CBC is unremarkable.
History of gastritis and I highly suspect alcoholic gastritis. At this point no evidence of hemorrhagic gastritis.
Will trial Carafate and if ineffective will try GI cocktail. Patient has had success with these in the past.
Alcohol level 130.
Thus far no evidence of alcohol withdrawal.
06:45
Epigastric discomfort improving.
Patient mildly tremulous but without tachycardia. No nausea
Lengthy discussion with patient regarding the need to discontinue alcohol use.
She acknowledges this and is now agreeable to inpatient alcohol detox treatment.
IV fluids infusing. Will give an IV dose of Ativan and will contact [facility] quality improvement specialist.
<Roverto Orantes MD - Last Filed: 09/08/24 13:32>
Update Note
Update Note:
Patient is awake and alert. No further nausea after an IV dose of Reglan.
She denies headache, denies neck or back pain but continues with moderate epigastric pain.
She denies fall nor injury.
Labs are overall reassuring. Very mild hypokalemia at 3.4, mildly to moderately elevated LFTs likely related to alcohol use. CBC is unremarkable.
History of gastritis and I highly suspect alcoholic gastritis. At this point no evidence of hemorrhagic gastritis.
Will trial Carafate and if ineffective will try GI cocktail. Patient has had success with these in the past.
Alcohol level 130.
Thus far no evidence of alcohol withdrawal.
06:45
Epigastric discomfort improving.
Patient mildly tremulous but without tachycardia. No nausea
Lengthy discussion with patient regarding the need to discontinue alcohol use.
She acknowledges this and is now agreeable to inpatient alcohol detox treatment.
IV fluids infusing. Will give an IV dose of Ativan and will contact [facility] quality improvement specialist.
UPDATE (Roverto Orantes MD)
I have seen and evaluated the patient after signout and reviewed all labs and imaging.
Focused HPI: 34-year-old female presented with nausea, vomiting, epigastric pain after being found laying on the ground outside of the bathroom. Reportedly having nausea/vomiting/diarrhea all night. She has a long history of alcohol abuse.
Previously had declined treatment but today was more willing to receive treatment.
Physical exam: Sleeping comfortably in bed on my entering, wakes to voice and subsequently awake and alert not in distress. Vital signs are normal including a heart rate in the 80s. Her abdomen is soft she does have some mild epigastric
tenderness. Mild tremor. No diaphoresis.
Medical Decision Making: Patient presented with GI symptoms, was also found on the ground outside the bathroom there is a question of possible seizures. She has a history of alcohol abuse. EKG here showed sinus rhythm with no acute ischemia. She
had lab work sent off including a CBC which shows marginal leukopenia but no anemia or thrombocytopenia. CMP shows marginal hypokalemia, marginal transaminitis likely alcohol related. Glucose acceptable. No acidosis. Her hCG is negative.
Urinalysis was contaminated. UDS positive for benzos. Her lipase is currently pending. She has been seen by [facility] and they are planning to place her in alcohol rehab.
I received a call from the lab and unfortunately for some reason the lipase for this patient is not able to be processed�it has been sent down redrawn twice but apparently the machine cannot process. She does still have some pain and epigastric
tenderness�given that we cannot obtain a lipase here (labs that we can do a send out test that will take 24 to 48 hours), will instead send for a CT abdomen pelvis to rule out signs of pancreatitis and to rule out any other acute intra-abdominal
emergency.
CT reviewed and shows findings consistent with pancolitis which fits with her clinical syndrome; no signs of pancreatitis. Likely viral. Likely some element of alcohol gastritis as well. Notably she has not had diarrhea or vomiting here and has
been in the emergency room for 8+ hours. Tolerating p.o. food and liquid. Her symptoms are well-controlled and at this point no clear indication for hospitalization for this issue. I think she can be discharged to rehab as I think her primary
issue is alcohol abuse. She did require low-dose Ativan here for some mild withdrawal symptoms but has been otherwise quite comfortable. Will plan to discharge to rehab.
ED Attending Note
<Lisset Rodriguez DO - Last Filed: 09/08/24 07:03>
-
Portions of this chart may have been created with voice recognition software.� Occasional wrong word or��sound alike� substitutions may have occurred due to the inherent limitations of voice recognition software.
Discharge Plan
Departure
Patient with high blood pressure during this ER visit?: No
Discharge Problem:
Colitis, Acute alcoholic gastritis without hemorrhage, Alcohol use disorder, moderate, dependence
Instructions: Colitis, Alcohol use disorder - ED discharge instructions, Gastritis - ED discharge instructions
Prescriptions:
No Action
Tums Extra Strength Smoothies 300 mg (750 mg) Tablet,Chewable
300 mg PO DAILYPRN PRN (Reason: upset stomach)
levothyroxine 75 mcg tablet
75 mcg PO DAILY
levetiracetam 500 mg Tablet
500 mg PO BID Qty: 60 0RF
folic acid 1 mg Tablet
1 mg PO DAILY Qty: 30 0RF
thiamine mononitrate (vit B1) 100 mg Tablet
100 mg PO DAILY Qty: 30 0RF
sucralfate 1 gram Tablet
1 g PO ACHS Qty: 52 0RF
pantoprazole 40 mg tablet,delayed release (DR/EC)
40 mg PO BID Qty: 60 0RF
pantoprazole [Protonix] 40 mg tablet,delayed release (DR/EC)
40 mg PO DAILY Qty: 14 0RF
ondansetron 4 mg tablet,disintegrating
4 mg PO Q8H PRN (Reason: nausea and vomiting) Qty: 10 0RF
Referrals:
Hola Freed DO [Family Provider, Family Practice]
Interventions
Interventions:
*Risk Screen - Suicide Last Done: 09/08/24 04:24
*General Assessment Last Done: 09/08/24 04:24
*Neglect/Abuse Screening Last Done: 09/08/24 04:24
*ED- Fall Risk Assessment Last Done: 09/08/24 04:54
*ED COVID-19 Vaccine History Last Done: 09/08/24 04:54
QC-[id number]-[id number] Assessment Last Done: 09/08/24 04:54
Discharge Date and Time
Print Language: MACEDONIAN
[2024-09-08 05:00] LABS: Glucose - Point of Care 116 mg/dl (70-99)
[2024-09-08] MEDS: REGLAN 10 MG IV (05:00)
[2024-09-08] MEDS: PROTONIX IV 40 MG IV (05:02)
[2024-09-08 05:10] LABS: Hematocrit 35.5 % (37.0-47.0); Hemoglobin 12.6 g/dL (12.0-16.0); Mean Corp Hgb Conc. 35.5 g/dL (33.0-37.0); Mean Corpuscular Volume 89.4 fL (81.0-99.0); Nucleated Red Blood Cells % 0 %; Platelet Count 194 10^3/uL (130-400); Red Cell Dist. Width 14.4 % (11.5-14.5)
[2024-09-08 05:20] LABS: INR 1.24; PT 15.9 Sec (11.4-14.6)
[2024-09-08 05:21] LABS: HCG, Serum Qualitative Screen Negative
[2024-09-08] MEDS: KCL 1026.2 MG IV ×2 (05:29)
[2024-09-08] MEDS: KCL 1026.2 ML IV (05:29)
[2024-09-08] MEDS: KCL 1026.2 MEQ IV (05:29)
[2024-09-08] MEDS: KCL 1026.2 GRAMS IV (05:29)
[2024-09-08 05:32] LABS: ALT (SGPT) 46 U/L (0-35); AST (SGOT) 145 U/L (14-36); Albumin 4.2 g/dl (3.5-5.0); Alkaline Phosphatase 83 U/L (38-126); Blood Urea Nitrogen 11 mg/dl (7-17); Calcium 8.6 mg/dl (8.4-10.2); Carbon Dioxide 25 mmol/L (22-30); Chloride 106 mmol/L (98-107); Estimated Creatinine Clearance 84 ml/min; Glucose 119 mg/dl (70-99); Magnesium 1.8 mg/dl (1.6-2.3); Potassium 3.4 mmol/L (3.5-5.1); Sodium 139 mmol/L (135-145); Total Protein 7.5 g/dl (6.3-8.2); eGFR > 60.00
[2024-09-08 06:03] LABS: Urine Character Slightly Cloudy (Clear)
[2024-09-08] MEDS: CARAFATE SUSPENSION 1 GM PO (06:08)
[2024-09-08 06:10] LABS: Urine Squamous Cell >30 /LPF (Few)
[2024-09-08 06:11] LABS: Urine Red Blood Cell 0-2 /HPF (0-2); Urine White Cell 26-30 /HPF (0-5)
[2024-09-08] MEDS: ATIVAN 0.5 MG IV ×2 (07:01→13:00)
== END 2024-09-08 14:33 | disposition home or self-care (01) ==
LOC: EMR 04:23
PROVIDERS: EMERGENCY PHYSICIAN Emergency Medicine; FAMILY PHYSICIAN Family Medicine
DX: K52.9 Noninfective gastroenteritis and colitis, unspecified (principal); K29.20 Alcoholic gastritis without bleeding; F10.20 Alcohol dependence, uncomplicated; E03.9 Hypothyroidism, unspecified; E87.6 Hypokalemia; F17.290 Nicotine dependence, other tobacco product, uncomplicated
CPT/HCPCS: 96365; 96366; 96375; 96376; 99284; 74177; 80053; 80306; 80307; 81003; 81015; 82077; 82962; 83690; 83735; 84100; 84703; 85025; 85610; 87077; 87086; 87186; 93005; Q9967